=== PATIENT | male | born 1980 | race African-American/Black ===

== ENCOUNTER 2018-08-27 15:20 | Inpatient (IN) | payer SELFPAY ==
[~2018-08-27 15:20] MED LIST: ISOVUE-370 76%-LOCM 1 ML ONE
--- NOTE | 2018-08-27 16:09 | RAD ---
RADIOGRAPH CHEST 1 VIEW: Date: 08/27/2018 Time: 3:47 p.m. HISTORY: A 38-year-old male with dyspnea. COMPARISON: None. FINDINGS: There is a dual-lead left subclavian pacemaker. The cardiomediastinal silhouette is normal. No pneu mothorax or pulmonary edema. The mid and upper lung zones are bilaterally clear. There is blunting of the lateral costophrenic angles bilaterally, left greater than right. Mild, small densities at th e base of the left lung, uncertain whether chronic or acute. IMPRESSION: 1. Small bilateral pleural effusions versus pleural thickening. 2. Mild pulmonary densities at the base of the left lower lobe, of uncertain age. 3. The rest of the lungs are clear. DESTINI [] POS: LEONA
[2018-08-27 16:44] LABS: #Eosinphils 0.1 thou/uL (0.0-0.7); #Monocytes 0.8 thou/uL (0.11-0.59); #Neutrophils 5.6 thou/uL (1.40-6.50); %Basophils 0.6 % (0.0-1.0); %Eosinophils 1.6 % (0.0-10.0); %Lymphocytes 23.6 % (21.0-51.0); %Monocytes 8.9 % (0.0-10.0); %Neutrophils 65.3 % (42.0-75.0); Hemoglobin 16.7 g/dL (14.0-18.0); Mean Corpuscular HGB CONC 33.9 g/dL (32.0-36.0); Mean Corpuscular Hemoglobin 29.9 pg (27.0-31.0); Mean Corpuscular Volume 88.2 fL (78.0-98.0); Mean Platelet Volume 7.8 fL (7.4-10.4); Platelet Count 255 thou/uL (130-400); RBC Distribution Width 12.6 % (11.5-14.5); Red Blood Cell (RBC) Count 5.57 mill/uL (4.70-6.10); White Blood Cell (WBC) Count 8.6 thou/uL (4.8-10.8)
[2018-08-27 17:02] LABS: Magnesium 1.7 mg/dL (1.6-2.6)
[2018-08-27 17:09] LABS: CKMB 3.6 ng/mL (0-6.6); Troponin I 0.049 ng/mL (< 0.028)
--- NOTE | 2018-08-27 17:52 | CT ---
CT PULMONARY ANGIOGRAM WITH 3D RENDERING: HISTORY: A 38-year-old male with a history of congestive heart failure with defibrillator, on Lasix. Worsenin g orthopnea and shortness of breath. FINDINGS: There is moderate focal pleural thickening in the left lung and chest base, with some pleural-based p arenchymal changes as well. There appears to be an absent left lower lobe pulmonary artery, with maria luz e either calcific or postoperative changes in the left lower lobe. No CT evidence for acute pulmonar y embolism. Small hiatal hernia. Very minimal pleural-based parenchymal changes in the right base. No evidence for free layering pleural effusion or pericardial effusion. IMPRESSION: 1. Pleural and parenchymal changes in the left inferior chest, with an absent left lower lobe pulmon alphonso artery. 2. There are some calcific changes, possibly old granulomatous disease. 3. No convincing CT evidence for acute pulmonary embolism. 4. Small hiatal hernia. POS: TENZIN
[2018-08-27 18:56] LABS: ALT (SGPT) 26 U/L (8-55); AST (SGOT) 44 U/L (5-34); Albumin 4.3 g/dL (3.5-5.0); Alkaline Phosphatase 108 U/L (40-150); Anion Gap 20 mmol/L (10-20); BUN (Urea Nitrogen) 33 mg/dL (8.9-20.6); Bilirubin, Total 1.5 mg/dL (0.2-1.2); Calc. Creatinine Clearance 0 mL/min (70-130); Calcium 9.6 mg/dL (7.8-10.44); Carbon Dioxide 31 mmol/L (22-29); Chloride 91 mmol/L (98-107); Estimated GFR-MDRD 36; Globulin 4.1 g/dL (2.4-3.5); Glucose 105 mg/dL (70-105); Protein, Total 8.4 g/dL (6.0-8.3); Sodium 139 mmol/L (136-145)
[2018-08-27 19:01] LABS: Potassium 2.9 mmol/L (3.5-5.1)
[2018-08-27] MEDS ORDERED: Ondansetron PF 4 MG/2 ML Vial IVP PRN (19:31)
[2018-08-27] MEDS ORDERED: Acetaminophen 325 MG TAB PO PRN (19:31)
[2018-08-27] MEDS ORDERED: Nitroglycerin 0.4 MG TAB (25 Tab Bottle) PO PRN (19:31)
[2018-08-27] MEDS ORDERED: Dextrose 5% in Water 1,000 ML IV PRN (19:41)
[2018-08-27] MEDS ORDERED: Dextrose 50% Abboject 50 ML SYRINGE SLOW IVP PRN (19:41)
[2018-08-27] MEDS ORDERED: Potassium Chloride 20 MEQ TAB PO SCH (19:45)
[2018-08-27 19:58] LABS: Cardiac Risk 5.9 (Less than 4.5)
[2018-08-27 21:33] LABS: Troponin I 0.055 ng/mL (< 0.028)
[2018-08-27 22:45] VITALS: BMI 37.0
[2018-08-28 01:09] LABS: Troponin I 0.044 ng/mL (< 0.028)
[2018-08-28] MEDS ORDERED: Potassium Chloride 20 MEQ TAB PO SCH (05:15)
[2018-08-28 05:36] LABS: #Eosinphils 0.2 thou/uL (0.0-0.7); #Lymphocytes 2.6 thou/uL (1.20-3.40); #Neutrophils 4.4 thou/uL (1.40-6.50); %Basophils 0.5 % (0.0-1.0); %Eosinophils 2.4 % (0.0-10.0); %Lymphocytes 31.6 % (21.0-51.0); %Monocytes 12.6 % (0.0-10.0); %Neutrophils 52.9 % (42.0-75.0); Hemoglobin 15.5 g/dL (14.0-18.0); Mean Corpuscular Hemoglobin 29.4 pg (27.0-31.0); Mean Corpuscular Volume 88.9 fL (78.0-98.0); Mean Platelet Volume 7.8 fL (7.4-10.4); Platelet Count 227 thou/uL (130-400); RBC Distribution Width 12.5 % (11.5-14.5); White Blood Cell (WBC) Count 8.2 thou/uL (4.8-10.8)
[2018-08-28 05:58] LABS: Anion Gap 15 mmol/L (10-20); BUN (Urea Nitrogen) 37 mg/dL (8.9-20.6); Calc. Creatinine Clearance 89 mL/min (70-130); Calcium 9.4 mg/dL (7.8-10.44); Carbon Dioxide 35 mmol/L (22-29); Chloride 91 mmol/L (98-107); Estimated GFR-MDRD 47; Glucose 123 mg/dL (70-105); Sodium 138 mmol/L (136-145)
[2018-08-28 06:07] LABS: Potassium 2.6 mmol/L (3.5-5.1)
[2018-08-28] MEDS: Potassium Chloride 20 MEQ TAB PO SCH ×3 (08:30→16:33)
--- NOTE | 2018-08-28 11:44 | HP ---
PRIMARY CARE PHYSICIAN: The patient has no PCP. CODE STATUS: FULL CODE. TIME OF EVALUATION: 7:10 p.m. CHIEF COMPLAINT: Shortness of breath. HISTORY OF PRESENT ILLNESS: This is a 38-year-old male patient with past medical history of arrhythmia, status post AICD placement; also history of asthma; COPD; diabetes; CHF; DVT; came to the hospital after having chest tightness that was reported as retrosternal, radiating to the neck, the symptoms were reported as moderate. No clear triggers, no alleviating factors, has been on and off for past few days, and then worse today. The patient has also reported having family history positive for father with CHF and diabetes and cardiac problems. REVIEW OF SYSTEMS: Constitutional: No fever, chills or generalized weakness. Respiratory: No cough, sputum production or shortness of breath. Cardiovascular: Chest tightness, shortness of breath. Gastrointestinal: No nausea, no vomiting, diarrhea or abdominal pain. HEALTH NAVIGATOR: No dizziness, headache or feeling lightheaded. Genitourinary: No burning on urination. Extremities: No leg swelling. All other systems were reviewed and negative except for the findings mentioned above. PAST MEDICAL HISTORY: Reported in the HPI. FAMILY HISTORY: Father with history of CHF, diabetes, and heart problems. Mother with negative history. PAST SURGICAL HISTORY: Pacemaker in 2017. PSYCHIATRIC HISTORY: No previous psych history. SOCIAL HISTORY: No alcohol, no drugs. No smoking history. KNOWN ALLERGIES: No known drug allergies. REPORTED MEDICATIONS: Metformin, Humulin 70/30, hydrochlorothiazide, gabapentin , and Lasix. PHYSICAL EXAMINATION: VITAL SIGNS: On presentation, blood pressure 107/80, heart rate 103, respiratory rate was 18, temperature 98.7, oxygen saturation 99 on 2 liters. GENERAL APPEARANCE: The patient is obese, alert, oriented, not in any acute distress. HEENT: Eyes, normal conjunctivae. Moist oral mucosa. Anicteric. NECK: No JVD. RESPIRATORY: Bilateral air entry. No rales, no wheezing. Symmetric expansion. CARDIOVASCULAR: Normal rate, regular rhythm. No murmurs, no gallop. No edema. ABDOMEN: Soft, normal bowel sounds. MUSCULOSKELETAL: Baseline range of motion and strength. No tenderness. SKIN: Warm and intact. No pallor, no rash, no redness. Peripheral pulses are present. Capillary refill seems to be intact. NEUROLOGIC: No evidence of any new focal weakness. Baseline speech. Cranial nerves seem to be intact. PSYCHIATRIC: The patient is in good mood. No anxiety, oriented, optimal judgment. IMAGING: EKG was reviewed by myself and also discussed with the performing physician from ER. The patient had normal heart rhythm with a rate of 86 with no evidence of any acute ischemic events. CTA was reviewed. The patient has pleural and parenchymal changes in the left inferior chest with an absent left lower lobe pulmonary artery. There are some calcific changes, possibly old granulomatous disease. No convincing CT evidence for acute pulmonary embolism, small hiatal hernia. Chest x-ray was reviewed. The patient has a small bilateral pleural effusion versus pleural thickening, mild pulmonary densities in the base of the left lower lobe the rest of the lungs are clear. LABORATORY DATA: Labs were reviewed. The patient has white count 9.6, hemoglobin 16.7, MCV 88, platelet count 255. D-dimer 1.28. Chemistry: Sodium 139, potassium 2.9, chloride 91, carbon dioxide 21, anion gap 20, BUN 33, and creatinine 2.05. We do not have previous records to compare. GFR 36, glucose 105, calcium 9.6, magnesium 1.7, total bilirubin 1.5. Troponins were trended, the initial one was 0.049, second one was 0.0325, the third one was 0.044. Beta -natriuretic peptide less than 10. Serum total protein 8.4, albumin 4.3, globulin 4.1. Cholesterol was normal. ASSESSMENT AND PLAN: The patient will be placed in the hospital with following medical problems. 1. Chest pain, rule out acute coronary syndrome. The patient has chest tightness. The patient has significant risk factors, troponins have mildly elevated, we will consult Cardiology for further plan and management. We will do echocardiogram. 2. History of congestive heart failure, we will do echocardiogram in the morning. We will reconcile home medications. 3. Hypokalemia. Potassium 2.9, the potassium being given now after the blood was drawn, ordered morning labs, so after morning lab collection, 40 mEq has been given. Take this into consideration for replacement of potassium. 4. Acute kidney injury versus chronic kidney disease. Creatinine is 2.05. There are no previous records to compare. We will hold diuretics. We will hold MARLON inhibitors. We will monitor kidney function. If not improving, the patient may need Nephrology for assistance with the patient. 5. Mildly elevated bilirubin and LFTs, unclear etiology, we will monitor, we will treat accordingly. 6. History of chronic obstructive pulmonary disease, we will reconcile home medications, adjust treatment as needed. This is chronic, seems to be stable. 7. History of diabetes with long-term use of insulin. We will place the patient on sliding scale. 8. Deep venous thrombosis prophylaxis. MTDD
[2018-08-28 14:21] LABS: Potassium 3.4 mmol/L (3.5-5.1)
--- NOTE | 2018-08-28 18:44 | PDOC.PN ---
- Subjective Encounter Start Date: 08/28/18 Encounter Start Time: 09:30 Patient seen and examined for CP. No new complaints. CP and SOB improving. No overnight events - Objective Resuscitation Status: Resuscitation Status FULL:Full Resuscitation MAR Reviewed: Yes Vital Signs & Weight: Vital Signs (12 hours) Temp Pulse Resp BP Pulse Ox 08/28/18 16:27 98 F 93 18 105/57 L 96 08/28/18 11:59 98.6 F 91 18 141/63 H 96 08/28/18 08:27 98.2 F 83 16 109/70 94 L Weight Weight 273 lb I&O: 08/27/18 08/28/18 08/29/18 06:59 06:59 06:59 Intake Total 600 1000 Output Total 750 975 Balance -150 25 Result Diagrams: 08/28/18 05:08 08/28/18 13:55 Additional Labs: Accuchecks 08/28/18 08/28/18 08/28/18 17:20 10:34 05:29 POC Glucose 166 H 123 H 134 H EKG Reviewed by me: Yes (Tele SR) Phys Exam - Physical Examination Constitutional: NAD Respiratory: no wheezing, no rhonchi Few bibasilar rales Cardiovascular: RRR, no rub Gastrointestinal: soft, non-tender, positive bowel sounds Neurological: moves all 4 limbs Dx/Plan - Plan DVT proph w/SCDs 1. Chest pain 2. SULAIMAN on CKD 2/Hypokalemia 3. DM2 4. Chronic pain syndrome 5. Obesity BMI 37 6. HTN / Elevated troponin due to demand ischemia / h/o DVT PLAN: Replace Potassium Hold diuretics Await Echo AM labs Resume Gabapentin Fluid restriction Avoid Nephrotoxic agents Review of Systems - Review of Systems Constitutional: negative: fever, chills, sweats, weakness, malaise, other Gastrointestinal: negative: Nausea, Vomiting, Abdominal Pain, Diarrhea, Constipation, Melena, Hematochezia, Other - Medications/Allergies Allergies/Adverse Reactions: Allergies Allergy/AdvReac Type Severity Reaction Status Date / Time No Known Drug Allergies Allergy Verified 08/27/18 22:02 Medications: Current Medications Acetaminophen (Tylenol) 650 mg PO Q4H PRN PRN Reason: Headache/Fever/Mild Pain (1-3) Dextrose/Water (Dextrose 50%) 25 gm SLOW IVP PRN PRN PRN Reason: Hypoglycemia Gabapentin (Neurontin) 300 mg PO TID SUSAN Glucagon (Glucagon) 1 mg IM PRN PRN PRN Reason: Hypoglycemia Dextrose/Water (D5w) 1,000 mls @ 0 mls/hr IV .Q0M PRN PRN Reason: Hypoglycemia Insulin Human Lispro (Humalog) 0 units SC .MILD SLIDING SCALE PRN PRN Reason: Mild Correctional Scale Nitroglycerin (Nitrostat) 0.4 mg PO Q5MIN PRN PRN Reason: Chest Pain Ondansetron HCl (Zofran) 4 mg IVP Q6H PRN PRN Reason: Nausea/Vomiting
[2018-08-28] MEDS: Gabapentin 300 MG CAP PO SCH (20:06)
--- NOTE | 2018-08-28 22:10 | CON ---
DATE OF CONSULTATION: 08/28/2018 INDICATION FOR CONSULTATION: A 38-year-old patient with chest pain. HISTORY OF PRESENT ILLNESS: The patient has a very confusing history, unclear as to exactly what the date of is, but he does have a pacemaker insertion. 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 At this time, he presented to the emergency room complaining of chest discomfort to me. He says he has left shoulder pain. The pain does not radiate. He described it as being a throbbin g pain that started when he was lifting parts where he works. He says he works in [employer] at a [employer] and says once he had his pacemaker inserted, then he went back to work at the same facility. I am uncertain whether or not the patient even works at all on his last notes. According to the staf f here when he was here back in June, he [facility] and uncertain as to where the patient even lives now. He has had no further chest pain since being admitted, he di d complain of some blurred vision while he had the chest discomfort and sometimes he described as oma ng throbbing and the other time he described it being vice-like pain which came and went. His cardia c enzymes are slightly abnormal, but are not significant for myocardial infarction. His troponin I i s 0.044 and we will continue to follow these. On admission, they were 0.049 increased up to 0.055 an d now back down to 0.44. His MB was negative at 3.6. His BNP was 10.0 and potassium was 2.9. He do es have a card which shows he did have a pacemaker implanted and he said this was due to some type of irregular rhythm or possibly bradycardia. He is definitely unclear about the etiology of the pacema ker insertion. We will try to obtain records from [place] to determine when or what the reason ind ication for the pacemaker insertion was, but this was implanted in 11/2017. His EKG does not show an y indication that the patient has any ischemia. He does have a sinus rhythm with a right bundle bran ch block. He says he has not had a stress test in the past. We will try to obtain some type of stre ss test on this gentleman to see whether or not there is any evidence of underlying ischemia. As far as his past medical history, social history, family history, review of systems, medications, allergi es, please refer to the notes already dictated by nurse practitioner, Aditi Wilburn. PHYSICAL EXAMINATION: GENERAL: Reveals a middle-aged gentleman who is in no acute distress. VITAL SIGNS: Blood pressure is 105/57. He is afebrile, respiratory rate is 18, heart rates in the 9 0s and shows a sinus rhythm. HEENT: Showed head to be normocephalic and atraumatic. Carotid pulses are present without any bruit s. CHEST: Clear to auscultation. There were no rales, rhonchi or wheezing noted. CARDIOVASCULAR: Exam reveals a regular rate and rhythm. He has a well healed surgical incision afte r pacemaker insertion underneath the left infraclavicular area. ABDOMEN: Shows obesity with positive bowel sounds. EXTREMITIES: Showed no clubbing, cyanosis or edema. Pedal pulses are present. NEUROLOGIC: There were no gross focal motor deficits, but in my opinion, the patient does appear to be somewhat confused and stories do not correlate with what we are finding from the records. We will try to obtain medical records to verify some of his stories. At this time, we will also ask for the pacemaker be evaluated and make sure there are no abnormalities with the pacemaker, but does appear that was implanted in November. I do not know whether this has been interrogated since it was implanted. He says it is not and he has not seen a undercutter operator since the implantation of the pacem emily. This is a [employer] device and we will ask for the [employer] unit support representative to evaluate the pace maker. Otherwise, the patient appears to be stable from my perspective at this time, there is no ind ication we need to do any further workup, but we will schedule him for some type of stress test to de termine whether or not he may have underlying coronary artery disease. He does have other problems a pparently with COPD, but he denies any tobacco abuse in the past, but uncertain as to why he would guerrier ve COPD and chest x-ray does not indicate COPD in my opinion Diabetes. His blood sugar was 105, the highest was 123. He is taking medications apparently for the diabetes. We will continue to follow the patient with you, but we will try to obtain further record s on this gentleman with his very confusing medical history.
[2018-08-29 07:10] LABS: Anion Gap 13 mmol/L (10-20); BUN (Urea Nitrogen) 28 mg/dL (8.9-20.6); Calc. Creatinine Clearance 120 mL/min (70-130); Calcium 9.4 mg/dL (7.8-10.44); Carbon Dioxide 33 mmol/L (22-29); Chloride 93 mmol/L (98-107); Estimated GFR-MDRD 64; Glucose 110 mg/dL (70-105); Sodium 136 mmol/L (136-145)
[2018-08-29 07:14] LABS: Potassium 2.9 mmol/L (3.5-5.1)
[2018-08-29] MEDS: Gabapentin 300 MG CAP PO SCH ×3 (08:10→21:03)
[2018-08-29] MEDS: Potassium Chloride 20 MEQ TAB PO SCH ×3 (08:10→16:53)
[2018-08-29] MEDS ORDERED: Regadenoson 0.4 MG/5 ML SYRINGE ONE (08:38)
--- NOTE | 2018-08-29 10:08 | CON ---
DATE OF CONSULTATION: 08/28/2018 ROOM NUMBER: [id number] PRIMARY CARE PHYSICIAN: Jack. PRIMARY VARNISH INSPECTOR: Dr. Mercedes David. REFERRING PHYSICIAN: Dr. Chao Gates. REASON FOR CARDIOLOGY CONSULTATION: Chest tightness and elevated troponin. HISTORY OF PRESENT ILLNESS: Mr. King is a 38-year-old -[place] male with a significant hist ory of pacemaker placement for unknown reason, COPD, insulin-dependent diabetes, congestive heart garo lure, and history of DVT 2 years ago. The patient started having squeeze like and a pressure-like ch est pain to his chest with worsening shortness of breath for a few days. He went to work yesterday, but he was transferred to [facility] by EMS for worsening of the symptoms. He d enied any other cardiac complaints during the episode. Slightly he has similar symptoms yesterday, b ut he does not have any chest pain or shortness of breath this afternoon. The patient has a history of [employer] pacemaker placement in 11/2017 due to syncopal episode and congestive heart failure per p atient report. The patient reported that the patient had congestive heart failure, but there are no echocardiograms to indicate the patient had a congestive heart failure. The patient has a history of DVT on the right lower extremity and patient was on the Coumadin before, but he was discharged in with Xarelto since the patient was on the Coumadin with a dosage of 17.5 mg. He says he is rikki ing the medicine, however, he is no longer taking the medication. He has a history of hypertension u rgency in 06/2018. The patient had a history of a CVA in 2016 and the patient had insulin-dependent diabetes. He states that his blood glucose has been stable at home. The patient has echocardiogram done in 06/2018 which showing a technically difficult examination due to the patient's body mass. According to our record, the patient does not have any cardiac workup ex cept echo. PAST MEDICAL HISTORY: 1. Hypertension. 2. 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 3. COPD. 4. Insulin-dependent diabetes. 5. Congestive heart failure. 6. History of DVT in 2015. 7. Status post syncope with a pacemaker placement in 11/2017. PAST SURGICAL HISTORY: Pacemaker placement in 2018. FAMILY HISTORY: There have a significant congestive heart failure, diabetes and heart problem in the paternal side. There is no significant cardiac related medical history in the maternal side. SOCIAL HISTORY: The patient worked at [employer]. 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 However, the patient last medical record showing the patient ____ . The patient denies ETOH, tobacco, or illicit drug abuse. ALLERGIES: No known drug allergies. However, the patient's previous note saying that the patient is allergic to LISINOPRIL, METFORMIN, TRIAMCINOLONE. HOME MEDICATIONS: Hydrochlorothiazide 12.5 mg once a day; Lasix 80 mg twice a day; metformin 100 mg twice a day; gabapentin 300 mg twice a day; Insulin Humulin 70/30, 30 units twice a day. REVIEW OF SYSTEMS: Review of systems was negative unless otherwise mentioned in the HPI or below. T he patient complained of blurry vision secondary to the history of CVA and also edema in the right lo wer extremity secondary to CVA. PHYSICAL EXAMINATION: VITAL SIGNS: Blood pressure 105/57, temperature 98.0, pulse 93, respiratory rate 18, O2 sat 96% with room air. GENERAL: The patient is alert, oriented x4, not in acute distress. HEAD: Normocephalic, atraumatic. EYES: Extraocular muscle movement intact. ENT AND MOUTH: Nasal and oral mucosa moist without lesions. NECK: No JVD. Neck is supple. Normal range of motion. RESPIRATORY: Clear to auscultate bilaterally. No wheezing, rales, or rhonchi noted. CARDIOVASCULAR: Regular rate and rhythm, normal S1, S2 and no S3 or S4. No murmur, hives, or thrill noted. Carotid pulses are present without bruit or thrill. 2+ pulses in the bilateral upper and lo wer extremities. No edema in the lower extremity or right upper extremity. ABDOMEN: Nontender or mass to palpate. Bowel sounds are present. MUSCULOSKELETAL: The patient able to move all extremities. The patient denies any claudication. SKIN: Warm and dry. No rash, bruise, or lesion noted. NEUROLOGIC: The patient alert and oriented x4, nonfocal. PSYCHIATRIC: The patient is in a good mood, mood is appropriate. DIAGNOSTIC DATA: The patient's 12-lead EKG in the ER shows sinus rhythm with right bundle jay blo ck with heart rate [address]-segment change or T-wave inversion. CT scan of the chest showed ple ural and parenchymal change in the left inferior chest ____ pulmonary arteries. Known convincing CT evidence for acute pulmonary embolism ____. LABORATORY DATA: WBC 8.2, hemoglobin 15.5, hematocrit 47.1, platelet 227 and D-dimer 1.28. Sodium 1 38, potassium 3.4 after potassium replacement. BUN 37, creatinine 1.95, glucose 123. Troponin 0.049 , 0.055, 0.044. AST 44, ALT 26. On 06/28/2018, the patient has a right upper quadrant ultrasound fo r elevated LFT and tenderness, the test showing a fatty liver to the left hepatic lobe and no additio nal abnormality. The patient was recommended to follow up right upper quadrant ultrasound within 6-8 weeks. ASSESSMENT AND PLAN: 1. Chest pain with indeterminate troponin level. The patient's last troponin is highest 0.055. Acc ording to the patient, the patient never had a stress test or any cardiac workup except the echocardi ogram in June and today, result is pending at this moment. We like to go ahead to order a stres s test tomorrow for further cardiac evaluation. 2. History of congestive heart failure. The patient had an echocardiogram done today and the result is pending at this moment. The patient is not on beta divya due to hypotensive and the patient is not on MARLON inhibitor or ARB secondary to history of chronic kidney disease. At this moment, the pat ient is not on a diuretic because the patient is doing well. 3. Chronic kidney disease, creatinine level is slightly improving today. We would like to continue to monitor. 4. Mildly elevated LFT, possible secondary to history of a fatty liver. According to the patient, t he patient have not had any additional ultrasound since the patient had here in June. 5. History of chronic obstructive pulmonary disease. According to the patient's chest x-ray, there is no evidence of COPD. The patient is doing well with room air. 6. Insulin-dependent diabetes. The patient is on before meals and at bedtime blood glucose check wi th sliding scale insulin, which is managed by primary care doctor. Thank you for allowing to participate in the care of this patient. We will follow along with the [facility] ient care team and make further recommendations as appropriate.
--- NOTE | 2018-08-29 11:54 | PDOC.CTH ---
Cardiology Progress Note - ROS shortness of breath - Objective Vital Signs Temp Pulse Resp BP Pulse Ox 08/29/18 11:20 98.6 F 65 14 142/71 H 94 L 08/29/18 08:00 97 08/29/18 07:52 97.8 F 65 16 126/63 97 08/29/18 05:02 95 08/29/18 03:41 99.1 F 63 12 109/53 L 95 Weight 280 lb 14.4 oz 08/28/18 08/29/18 08/30/18 06:59 06:59 06:59 Intake Total 600 1400 Output Total 750 975 Balance -150 425 - Physical Examination General/Neuro: alert & oriented x3 Neck: no JVD present Lungs: CTA Heart: RRR Abdomen: soft Extremities: + edema B - Telemetry Telemetry Rhythm: NSR - Labs Result Diagrams: 08/28/18 05:08 08/29/18 05:44 Troponin/CKMB CK-MB (CK-2) 3.6 ng/mL (0-6.6) 08/27/18 16:36 Troponin I 0.044 ng/mL (< 0.028) H 08/28/18 00:24 - Assessment/Plan 1. Chest pain 2. SULAIMAN on CKD 2/Hypokalemia 3. DM2 4. Chronic pain syndrome 5. Obesity BMI 37 6. HTN / Elevated troponin due to demand ischemia / h/o DVT 7. s/p pacemaker insertion. Interrogation: A lead is turned off. Likely just below the TV into the RV. occ. episodes of rapid ventricular rates, may be due to intermitent Afib. but can not be certain since the A-lead is not in the RA. Consider revision. add Coreg bid. 8. RAMIREZ- this may be related to his obesity. Waiting for records from [place]. Echo: EF is WNL.
--- NOTE | 2018-08-29 16:00 | NM ---
CARDIAC SPECT STRESS ONLY WITH EF AND WALL MOTION: HISTORY: A 38-year-old male with a history of chest pain and shortness of breath, history of congestive heart failure. Prior stroke. Prior cardiac arrest. COPD and asthma. FINDINGS: LexiScan sestamibi study is performed. The patient was injected with 33.0 mCi Technetium 99m sestamibi intravenously for stress images. No scan evidence for infarct or ischemia involving the short axis, vertical long axis, horizontal long a xis. LHR 0.3. EDV 115 mL. EF 52%. MYOCARDIAL PERFUSION WALL MOTION: No significant wall motion abnormality. IMPRESSION: Unremarkable stress-only cardiac SPECT with ejection fraction and wall motion. POS: TENZIN
--- NOTE | 2018-08-29 16:46 | PDOC.PN ---
- Subjective Encounter Start Date: 08/29/18 Encounter Start Time: 07:30 Patient seen and examined for CP/SOB. No new complaints. No overnight events - Objective Resuscitation Status: Resuscitation Status FULL:Full Resuscitation MAR Reviewed: Yes Vital Signs & Weight: Vital Signs (12 hours) Temp Pulse Resp BP Pulse Ox 08/29/18 15:28 98 F 91 14 132/88 97 08/29/18 11:20 98.6 F 65 14 142/71 H 94 L 08/29/18 08:00 97 08/29/18 07:52 97.8 F 65 16 126/63 97 08/29/18 05:02 95 Weight Weight 280 lb 14.4 oz I&O: 08/28/18 08/29/18 08/30/18 06:59 06:59 06:59 Intake Total 600 1400 Output Total 750 975 Balance -150 425 Result Diagrams: 08/28/18 05:08 08/29/18 05:44 Additional Labs: Accuchecks 08/29/18 08/29/18 08/28/18 10:54 06:20 20:37 POC Glucose 123 H 124 H 134 H 08/28/18 17:20 POC Glucose 166 H EKG Reviewed by me: Yes (Tele SR) Phys Exam - Physical Examination Constitutional: NAD Respiratory: no wheezing, no rhonchi Cardiovascular: RRR, no rub Gastrointestinal: soft, non-tender, positive bowel sounds Neurological: moves all 4 limbs Dx/Plan - Plan DVT proph w/SCDs 1. Chest pain 2. SULAIMAN on CKD 2/Hypokalemia 3. DM2 4. Chronic pain syndrome 5. Obesity BMI 37 6. HTN / Elevated troponin due to demand ischemia / h/o DVT PLAN: Replace Potassium Echo reviewed Stress test AM labs Fluid restriction Avoid Nephrotoxic agents Review of Systems - Review of Systems Respiratory: SOB with Excertion. negative: Cough, Dry, Shortness of Breath, Hemoptysis, Pleuritic Pain, Sputum, Wheezing Cardiovascular: negative: chest pain, palpitations, orthopnea, paroxysmal nocturnal dyspnea, edema, light headedness, other - Medications/Allergies Allergies/Adverse Reactions: Allergies Allergy/AdvReac Type Severity Reaction Status Date / Time No Known Drug Allergies Allergy Verified 08/27/18 22:02 Medications: Current Medications Acetaminophen (Tylenol) 650 mg PO Q4H PRN PRN Reason: Headache/Fever/Mild Pain (1-3) Carvedilol (Coreg) 3.125 mg PO BID-[facility] Dextrose/Water (Dextrose 50%) 25 gm SLOW IVP PRN PRN PRN Reason: Hypoglycemia Gabapentin (Neurontin) 300 mg PO TID [facility] Last Admin: 08/29/18 15:18 Dose: 300 mg Glucagon (Glucagon) 1 mg IM PRN PRN PRN Reason: Hypoglycemia Dextrose/Water (D5w) 1,000 mls @ 0 mls/hr IV .Q0M PRN PRN Reason: Hypoglycemia Insulin Human Lispro (Humalog) 0 units SC .MILD SLIDING SCALE PRN PRN Reason: Mild Correctional Scale Nitroglycerin (Nitrostat) 0.4 mg PO Q5MIN PRN PRN Reason: Chest Pain Ondansetron HCl (Zofran) 4 mg IVP Q6H PRN PRN Reason: Nausea/Vomiting Potassium Chloride (K-Dur) 40 meq PO TID-[facility] Stop: 08/29/18 17:01 Last Admin: 08/29/18 11:03 Dose: 40 meq
[2018-08-29] MEDS: Carvedilol 3.125 MG TAB PO SCH (16:53)
[2018-08-30 05:51] LABS: Anion Gap 15 mmol/L (10-20); Calcium 9.5 mg/dL (7.8-10.44); Carbon Dioxide 27 mmol/L (22-29); Chloride 99 mmol/L (98-107); Potassium 3.5 mmol/L (3.5-5.1); Sodium 137 mmol/L (136-145)
[2018-08-30 06:00] LABS: BUN (Urea Nitrogen) 20 mg/dL (8.9-20.6); Calc. Creatinine Clearance 134 mL/min (70-130); Estimated GFR-MDRD 72; Glucose 107 mg/dL (70-105)
[2018-08-30] MEDS ORDERED: Sodium Chloride 0.9% 10 ML ONE (07:41)
[2018-08-30] MEDS: Carvedilol 3.125 MG TAB PO SCH ×2 (08:17→17:25)
[2018-08-30] MEDS: Gabapentin 300 MG CAP PO SCH ×3 (08:17→21:09)
[2018-08-30] MEDS: HumaLOG 300 UNITS/3 ML VIAL SC PRN (11:02)
--- NOTE | 2018-08-30 13:26 | PDOC.CTH ---
<Aditi Wilburn - Last Filed: 08/30/18 13:25> Cardiology Progress Note - Subjective the pt seen and examined. No overnight events. No cardiac complaints. - Objective Vital Signs Temp Pulse Resp BP BP Pulse Ox 08/30/18 12:28 97.9 F 82 17 140/89 99 08/30/18 08:12 98.1 F 84 16 115/69 98 08/30/18 07:49 96 08/30/18 04:40 98 08/30/18 03:52 97.6 F 62 20 128/63 99 Weight 282 lb 11.2 oz 08/29/18 08/30/18 08/31/18 06:59 06:59 06:59 Intake Total 1400 1170 Output Total 975 1740 Balance 425 -570 - Physical Examination General/Neuro: alert & oriented x3 Neck: no JVD present Lungs: CTA Heart: RRR Abdomen: soft Extremities: other: (No edema) - Telemetry Telemetry Rhythm: SR - Labs Result Diagrams: 08/28/18 05:08 08/30/18 05:00 Troponin/CKMB CK-MB (CK-2) 3.6 ng/mL (0-6.6) 08/27/18 16:36 Troponin I 0.044 ng/mL (< 0.028) H 08/28/18 00:24 - Assessment/Plan 1. Chest pain - resolved; 2. SULAIMAN on CKD 2/Hypokalemia - improving 3. DM2 - managed by pcp 4. Chronic pain syndrome - 5. Obesity BMI 37 6. HTN - stable 7. S/p pacemaker insertion. Interrogation: A lead is turned off. Likely just below the TV into the RV. occ. episodes of rapid ventricular rates, may be due to intermittent Afib. but can not be certain since the A-lead is not in the RA. Consider revision. On Coreg bid. 8. RAMIREZ - stable today. Waiting for records from [place]. Echo: EF is WNL. Review of Systems - Review of Systems Constitutional: reports: no symptoms reported EENTM: reports: no symptoms reported Respiratory: reports: no symptoms reported Cardiac (ROS): reports: no symptoms reported ABD/GI: reports: no symptoms reported Musculoskeletal: reports: joint pain <Benson David - Last Filed: 08/30/18 17:38> Cardiology Progress Note - Objective Vital Signs Temp Pulse Resp BP BP Pulse Ox 08/30/18 15:51 98.6 F 77 17 135/84 98 08/30/18 12:28 97.9 F 82 17 140/89 99 08/30/18 08:12 98.1 F 84 16 115/69 98 08/30/18 07:49 96 Weight 282 lb 11.2 oz 08/29/18 08/30/18 08/31/18 06:59 06:59 06:59 Intake Total 1400 1170 720 Output Total 975 1740 1020 Balance 425 -570 -300 - Labs Result Diagrams: 08/28/18 05:08 08/30/18 05:00 Troponin/CKMB CK-MB (CK-2) 3.6 ng/mL (0-6.6) 08/27/18 16:36 Troponin I 0.044 ng/mL (< 0.028) H 08/28/18 00:24 - Assessment/Plan pt. seen and eval. by me. I agree with the A/P by the HYDROGRAPHER. The A-lead does not have to be revised at this time. he rarely paces. The stress test was negative. From a cardiac stanpoint he is stable. No further workup indicated.
[2018-08-30] MEDS ORDERED: Polyethylene Glycol 3350 17 GM Packet PO PRN (15:09)
--- NOTE | 2018-08-30 16:57 | RAD ---
RIGHT SHULDER 3 VIEWS: HISTORY: Shoulder pain x 1 day. FINDINGS: Some minimal arthritic change of the AC joint. There are no signs of fracture or dislocation. IMPRESSION: No acute injury. POS: [facility]
--- NOTE | 2018-08-30 18:37 | PDOC.PN ---
- Subjective Encounter Start Date: 08/30/18 Encounter Start Time: 12:30 Patient seen and examined for CP. Rt shoulder pain - worsening. No other complaints. No overnight events - Objective Resuscitation Status: Resuscitation Status FULL:Full Resuscitation MAR Reviewed: Yes Vital Signs & Weight: Vital Signs (12 hours) Temp Pulse Resp BP BP Pulse Ox 08/30/18 15:51 98.6 F 77 17 135/84 98 08/30/18 12:28 97.9 F 82 17 140/89 99 08/30/18 08:12 98.1 F 84 16 115/69 98 08/30/18 07:49 96 Weight Weight 282 lb 11.2 oz I&O: 08/29/18 08/30/18 08/31/18 06:59 06:59 06:59 Intake Total 1400 1170 720 Output Total 975 1740 1020 Balance 425 -570 -300 Result Diagrams: 08/28/18 05:08 08/30/18 05:00 Additional Labs: Accuchecks 08/30/18 08/30/18 08/30/18 17:04 10:41 05:45 POC Glucose 158 H 212 H 111 H 08/29/18 20:17 POC Glucose 141 H EKG Reviewed by me: Yes (Tele SR) Phys Exam - Physical Examination Constitutional: NAD Respiratory: no wheezing, no rhonchi Cardiovascular: RRR, no rub Gastrointestinal: soft, non-tender, positive bowel sounds Neurological: moves all 4 limbs Dx/Plan - Plan DVT proph w/SCDs 1. Chest pain 2. SULAIMAN on CKD 2/Hypokalemia 3. DM2 4. Rt shoulder pain 5. Obesity BMI 37 6. HTN /Chronic pain syndrome/ Elevated troponin due to demand ischemia / h/o DVT PLAN: Rt shoulder XR Await records from [place] Cont current meds as below Cardiology following Review of Systems - Review of Systems Cardiovascular: negative: chest pain, palpitations, orthopnea, paroxysmal nocturnal dyspnea, edema, light headedness, other Gastrointestinal: negative: Nausea, Vomiting, Abdominal Pain, Diarrhea, Constipation, Melena, Hematochezia, Other - Medications/Allergies Allergies/Adverse Reactions: Allergies Allergy/AdvReac Type Severity Reaction Status Date / Time No Known Drug Allergies Allergy Verified 08/27/18 22:02 Medications: Current Medications Acetaminophen (Tylenol) 650 mg PO Q4H PRN PRN Reason: Headache/Fever/Mild Pain (1-3) Carvedilol (Coreg) 3.125 mg PO BID-[facility] Last Admin: 08/30/18 17:25 Dose: 3.125 mg Dextrose/Water (Dextrose 50%) 25 gm SLOW IVP PRN PRN PRN Reason: Hypoglycemia Gabapentin (Neurontin) 300 mg PO TID [facility] Last Admin: 08/30/18 15:55 Dose: 300 mg Glucagon (Glucagon) 1 mg IM PRN PRN PRN Reason: Hypoglycemia Dextrose/Water (D5w) 1,000 mls @ 0 mls/hr IV .Q0M PRN PRN Reason: Hypoglycemia Insulin Human Lispro (Humalog) 0 units SC .MILD SLIDING SCALE PRN PRN Reason: Mild Correctional Scale Last Admin: 08/30/18 11:02 Dose: 3 unit Nitroglycerin (Nitrostat) 0.4 mg PO Q5MIN PRN PRN Reason: Chest Pain Ondansetron HCl (Zofran) 4 mg IVP Q6H PRN PRN Reason: Nausea/Vomiting Polyethylene Glycol (Miralax) 17 gm PO DAILY PRN PRN Reason: Constipation Senna/Docusate Sodium (Senokot S) 2 tab PO BID [facility]
[2018-08-30] MEDS: Senokot S 8.6-50 MG TAB PO SCH (21:09)
[2018-08-31] MEDS ORDERED: Potassium Chloride 20 MEQ TAB PO SCH (08:00)
--- NOTE | 2018-08-31 09:22 | PDOC.CTH ---
<Aditi Wilburn - Last Filed: 08/31/18 09:18> Cardiology Progress Note - Subjective The pt seen and examined. No overnight events. No cardiac complaints. - Objective Vital Signs Temp Pulse Resp BP Pulse Ox 08/31/18 08:00 98 08/31/18 07:15 98.1 F 58 L 16 106/55 L 98 08/31/18 03:40 98.2 F 65 18 141/67 H 96 Weight 286 lb 1.6 oz 08/30/18 08/31/18 09/01/18 06:59 06:59 06:59 Intake Total 1170 1425 Output Total 1740 1670 Balance -570 -245 - Physical Examination General/Neuro: alert & oriented x3 Neck: no JVD present Lungs: CTA Heart: RRR Abdomen: soft Extremities: other: (No edema) - Telemetry Telemetry Rhythm: SR - Labs Result Diagrams: 08/28/18 05:08 08/30/18 05:00 Troponin/CKMB CK-MB (CK-2) 3.6 ng/mL (0-6.6) 08/27/18 16:36 Troponin I 0.044 ng/mL (< 0.028) H 08/28/18 00:24 - Assessment/Plan 1. Chest pain - resolved; Stress test showed normal; 2. SULAIMAN on CKD 2/Hypokalemia - improving; 3. DM2 - managed by pcp 4. Chronic pain syndrome - 5. Obesity BMI 37 6. HTN - stable 7. S/p pacemaker insertion. Interrogation: A lead is turned off. Likely just below the TV into the RV. occ. episodes of rapid ventricular rates, may be due to intermittent Afib. but can not be certain since the A-lead is not in the RA. Consider revision as outpt. On Coreg bid. 8. RAMIREZ - stable today. Waiting for records from [place]. Echo: EF is WNL. MAR reviewed * The A-lead does not have to be revised at this time. he rarely paces. Possible revision as outpt. * No further workup indicated. From a cardiac stanpoint he is stable. Ok to d/ c. The pt will f/u with Dr David' office within 10 days. Review of Systems - Review of Systems Constitutional: reports: no symptoms reported EENTM: reports: no symptoms reported Respiratory: reports: no symptoms reported Cardiac (ROS): reports: no symptoms reported ABD/GI: reports: no symptoms reported : reports: no symptoms reported <Benson David - Last Filed: 08/31/18 16:27> Cardiology Progress Note - Objective Vital Signs Temp Pulse Resp BP Pulse Ox 08/31/18 12:00 98.2 F 91 16 135/70 96 08/31/18 09:26 89 180/93 H 08/31/18 08:00 98 08/31/18 07:15 98.1 F 58 L 16 106/55 L 98 Weight 286 lb 1.6 oz 08/30/18 08/31/18 09/01/18 06:59 06:59 06:59 Intake Total 1170 1425 Output Total 1740 1670 Balance -570 -245 - Labs Result Diagrams: 08/28/18 05:08 08/30/18 05:00 Troponin/CKMB CK-MB (CK-2) 3.6 ng/mL (0-6.6) 08/27/18 16:36 Troponin I 0.044 ng/mL (< 0.028) H 08/28/18 00:24 - Assessment/Plan Pt.seen and eval.by me.I agree with the A/P by the PIECE MAKER.Cardiac status is stable.ok to d/c to[place]ye.F/U in the office in 1-2 months.
[2018-08-31] MEDS: Carvedilol 3.125 MG TAB PO SCH ×2 (09:24→16:53)
[2018-08-31] MEDS: Gabapentin 300 MG CAP PO SCH ×2 (09:24→16:53)
[2018-08-31] MEDS: Senokot S 8.6-50 MG TAB PO SCH (09:24)
[2018-08-31] MEDS: HumaLOG 300 UNITS/3 ML VIAL SC PRN (11:00)
[2018-08-31 16:56] VITALS: BP 163/92; TEMP 98.5
--- NOTE | 2018-09-01 09:50 | DIS ---
DATE OF ADMISSION: 08/27/2018 DATE OF DISCHARGE: 08/31/2018 DISCHARGE DISPOSITION: Home. FOLLOWUP: 1. Follow up with primary care physician at [facility] in 1 week. 2. Follow up with Dr. David after 1 week. 3. [facility] followup as an outpatient is recommended. 4. BMP after 1 and 3 weeks is recommended. Primary care physician advised to follow. ALLERGIES: NO KNOWN DRUG ALLERGIES. BRIEF HISTORY: The patient was seen and examined on the day of discharge. Denies any new complaints. No chest pain, shortness of breath, or palpitations. DISCHARGE MEDICATIONS: 1. Carvedilol 3.125 mg b.i.d. 2. Lasix 40 mg daily. 3. Potassium chloride 10 mEq daily. 4. Humulin 70/30 of 30 units b.i.d. 5. Gabapentin 300 mg 3 times a day. INPATIENT [employer]: Cardiology, Dr. Abrahan David. BRIEF HOSPITAL COURSE: The patient is a 38-year-old male with congestive heart failure, diabetes, hypertension, and pacemaker in the past, presented to the hospital with chest discomfort. Please refer to the history and physical dated 08/27/[address] Gates for further details. The patient was admitted to the hospital with a diagnosis of chest discomfort. The patient was seen by Dr. Abrahan David. Echocardiogram was obtained that showed ejection fraction of 50% to 55%. His pacemaker was interrogated. The A-lead was turned off. He will probably need revision as an outpatient. He will follow up with Dr. David next week. He also had acute kidney injury along with hypokalemia. For this reason, Lasix dose has been reduced. I also discontinued hydrochlorothiazide. His potassium on admission was 2.9, at discharge is 3.5. Lowest potassium was 2.6. His creatinine on the day of discharge is 1.33, on admission was 2.05. His troponins were in the indeterminate range at 0.049. He has been cleared by Cardiology for discharge. FINAL DIAGNOSES: 1. Chest discomfort. 2. Elevated troponins, probably secondary to demand ischemia. 3. Acute kidney injury on chronic kidney disease, stage 2. 4. Hypokalemia, replaced. 5. Diabetes mellitus, type 2. 6. Right shoulder pain with negative shoulder x-ray. 7. Obesity with BMI of 37. 8. Chronic pain syndrome. 9. Hypertension. 10. History of deep venous thrombosis in the past. Plan of care was discussed with the patient in detail. Please note that the patient has 2 different medical record numbers with a different date of . Job ID: [id number]
--- NOTE | 2018-09-04 16:08 | EKG ---
Test Reason : Blood Pressure : / mmHG Vent. Rate : 086 BPM Atrial Rate : 086 BPM P-R Int : 146 ms QRS Dur : 144 ms QT Int : 450 ms P-R-T Axes : 067 024 033 degrees QTc Int : 538 ms Normal sinus rhythm Right bundle branch block S1 Q3 T3 Right bundle branch block Abnormal ECG Confirmed by JOSE MANUEL LEBLANC ([id number]), scientific publications editor VONDA HURD ([id number]) on 09/04/2018 4:08:32 PM Referred By: Confirmed By:JOSE MANUEL LEBLANC
== END 2018-08-31 16:58 | disposition home or self-care (01) | DRG 313 ==
LOC: ERS 15:20 → 2NO 18:45
PROVIDERS: ADMIT Internal Medicine; ATTEND Internal Medicine
DX: R07.89 Other chest pain (principal); I24.8 Other forms of acute ischemic heart disease; I69.351 Hemiplegia and hemiparesis following cerebral infarction affecting right dominant side; I13.0 Hypertensive heart and chronic kidney disease with heart failure and stage 1 through stage 4 chronic kidney disease, or unspecified chronic kidney disease; N17.9 Acute kidney failure, unspecified; J44.9 Chronic obstructive pulmonary disease, unspecified; Z79.4 Long term (current) use of insulin; E11.22 Type 2 diabetes mellitus with diabetic chronic kidney disease; I50.9 Heart failure, unspecified; Z95.0 Presence of cardiac pacemaker; G89.4 Chronic pain syndrome; E87.6 Hypokalemia; Z86.718 Personal history of other venous thrombosis and embolism; E66.9 Obesity, unspecified; Z68.37 Body mass index [BMI] 37.0-37.9, adult; N18.2 Chronic kidney disease, stage 2 (mild)
CPT/HCPCS: 36415; 36416; 71045; 71275; 78452; 80048; 80053; 80061; 82553; 83690; 83735; 83880; 84484; 85025; 85379; 90471; 90686; 93005; 93017; 93306; 94760; A9500; G0008; J2785; J3475; J7050

== ENCOUNTER 2018-10-01 18:00 | Observation (INO) | payer SELFPAY ==
[2018-10-01 18:40] LABS: #Eosinphils 0.3 thou/uL (0.0-0.7); #Monocytes 0.9 thou/uL (0.11-0.59); #Neutrophils 4.7 thou/uL (1.40-6.50); %Basophils 0.6 % (0.0-1.0); %Eosinophils 3.5 % (0.0-10.0); %Lymphocytes 25.4 % (21.0-51.0); %Monocytes 10.9 % (0.0-10.0); %Neutrophils 59.6 % (42.0-75.0); Hemoglobin 14.8 g/dL (14.0-18.0); Mean Corpuscular HGB CONC 33.4 g/dL (32.0-36.0); Mean Corpuscular Hemoglobin 30.8 pg (27.0-31.0); Mean Corpuscular Volume 92.2 fL (78.0-98.0); Mean Platelet Volume 7.8 fL (7.4-10.4); Platelet Count 199 thou/uL (130-400); White Blood Cell (WBC) Count 7.8 thou/uL (4.8-10.8)
[2018-10-01 19:05] LABS: ALT (SGPT) 19 U/L (8-55); AST (SGOT) 19 U/L (5-34); Alkaline Phosphatase 106 U/L (40-150); Anion Gap 12 mmol/L (10-20); BUN (Urea Nitrogen) 11 mg/dL (8.9-20.6); Bilirubin, Total 0.4 mg/dL (0.2-1.2); Calc. Creatinine Clearance 0 mL/min (70-130); Calcium 9.3 mg/dL (7.8-10.44); Carbon Dioxide 26 mmol/L (22-29); Chloride 103 mmol/L (98-107); Estimated GFR-MDRD 74; Globulin 3.1 g/dL (2.4-3.5); Glucose 258 mg/dL (70-105); Lipase 106 U/L (8-78); Potassium 3.9 mmol/L (3.5-5.1); Protein, Total 7.1 g/dL (6.0-8.3); Sodium 137 mmol/L (136-145)
[2018-10-01 19:25] LABS: CKMB 4.7 ng/mL (0-6.6)
--- NOTE | 2018-10-01 19:57 | RAD ---
CHEST ONE VIEW: 10/01/18 HISTORY: Chest pain and shortness of breath. COMPARISON: 08/27/18 . FINDINGS: Portable upright chest demonstrates a left sided transvenous pacemaker with unchanged lead position. Normal cardiac silhouette. The pulmonary hilum is normal. There is pulmonary vascular prominence. Sta ble hazy opacification left base. Adequate aeration of the upper lungs. No pneumothorax. IMPRESSION: Pulmonary vascular prominence. POS: [facility]
[2018-10-01] MEDS ORDERED: Acetaminophen 500 MG TAB ONE (21:09)
[2018-10-01 22:12] LABS: Troponin I 0.054 ng/mL (< 0.028)
[2018-10-01] MEDS ORDERED: Acetaminophen 650 MG Suppository PR PRN (22:58)
[2018-10-01] MEDS ORDERED: Senokot S 8.6-50 MG TAB PO PRN (22:58)
[2018-10-01] MEDS ORDERED: Bisacodyl 5 MG TAB PO PRN (22:58)
[2018-10-01] MEDS ORDERED: Ondansetron ODT 4 MG TAB PO PRN (22:58)
[2018-10-01] MEDS ORDERED: Nitroglycerin 0.4 MG TAB (25 Tab Bottle) PO PRN (22:58)
[2018-10-01] MEDS ORDERED: Acetaminophen 325 MG TAB PO PRN (22:58)
[2018-10-01] MEDS ORDERED: Bisacodyl 10 MG SUPP PR PRN (22:58)
[2018-10-01] MEDS ORDERED: Ondansetron PF 4 MG/2 ML Vial IVP PRN (22:58)
[2018-10-01] MEDS ORDERED: Calcium Carbonate 500 MG ChewTAB PO PRN (22:58)
[2018-10-01] MEDS ORDERED: Sodium Chloride 0.9% 1,000 ML IV SCH (23:00)
--- NOTE | 2018-10-01 23:00 | CT ---
CT ABDOMEN WITH CONTRAST CT PELVIS WITH CONTRAST 10/01/18 COMPARISON: None. CORRELATION: CT angiogram of the chest 08/27/18. HISTORY: Abdominal pain. Chest pain. FINDINGS: Redemonstration of parenchymal changes in the left lung base. Parenchymal opacity has not changed and measures 3.6 x 1.6 cm. The degree of pleural fluid in the left hemithorax has decreased, currently m easuring 4.0 x 1.0 cm (previously measuring 7.1 x 2 cm). Portal vein is patent. Unremarkable gallbladder. The liver, spleen, pancreas, and adrenal glands have appropriate enhancement. The right kidney is somewhat smaller than the contralateral side. Nevertheless, no evidence of obstru ctive uropathy. Punctate nonobstructing calculus is noted in the upper pole of the left renal pelvis. There appears to be scarring in the upper pole of the right kidney. Bilaterally, no obstructive urop athy. There are nonspecific mildly enlarged left periaortic lymph nodes. Supervisor Liquefaction enlarged lymph node measures 1.1 x 0.6 cm. Symmetric attenuation of the psoas muscles. No gastrohepatic, retrocrural or periportal lymphadenopathy. No mesenteric mass, free air or free fluid. There are few scattered nonspecific mildly enlarged centr al mesenteric lymph nodes. Limited evaluation of the alimentary canal due to lack of oral contrast administration. Multiple norm al caliber small bowel loops are identified. Fecalization of the distal and terminal ileum likely due to incompetent ileocecal valve, rather than an obstructive process. Scattered fecal material in a no ndistended, nondilated colon. Occasional diverticulum. No diverticulitis. Normal caliber appendix is noted. CT PELVIS: No mass, lymphadenopathy, free air or free fluid. Unremarkable urinary bladder. IMPRESSION: 1. Nonspecific intra-abdominal lymph nodes. Correlate for mesenteric lymphadenitis. 2. Diminutive right kidney with scarring in the upper pole of the right kidney. 3. Stable opacification of the left lung base. Interval decrease in size of a left pleural effus ion. POS: [facility]
[2018-10-01] MEDS ORDERED: HumaLOG 300 UNITS/3 ML VIAL SC PRN ×2 (23:04)
[2018-10-01] MEDS ORDERED: Dextrose 50% Abboject 50 ML SYRINGE SLOW IVP PRN (23:04)
[2018-10-01] MEDS ORDERED: Dextrose 5% in Water 1,000 ML IV PRN (23:04)
[2018-10-02] MEDS ORDERED: cloNIDine 0.1 MG TAB ONE (00:44)
[2018-10-02] MEDS ORDERED: hydrALAZINE 20 MG/ML VIAL ONE (01:35)
[2018-10-02] MEDS ORDERED: HYDROcodone/Acetaminophen 5/325 mg Tablet ONE (02:06)
[2018-10-02 03:17] LABS: #Basophils 0.1 thou/uL (0.0-0.2); #Eosinphils 0.3 thou/uL (0.0-0.7); #Lymphocytes 2.1 thou/uL (1.20-3.40); #Monocytes 0.8 thou/uL (0.11-0.59); #Neutrophils 4.5 thou/uL (1.40-6.50); %Basophils 0.9 % (0.0-1.0); %Eosinophils 3.9 % (0.0-10.0); %Lymphocytes 26.9 % (21.0-51.0); %Neutrophils 58.4 % (42.0-75.0); Hemoglobin 14.1 g/dL (14.0-18.0); Mean Corpuscular HGB CONC 34.1 g/dL (32.0-36.0); Mean Corpuscular Hemoglobin 31.4 pg (27.0-31.0); Mean Corpuscular Volume 92.3 fL (78.0-98.0); Mean Platelet Volume 8.3 fL (7.4-10.4); Platelet Count 198 thou/uL (130-400); RBC Distribution Width 13.1 % (11.5-14.5); White Blood Cell (WBC) Count 7.7 thou/uL (4.8-10.8)
[2018-10-02 03:21] VITALS: BP 156/84; TEMP 97.9; BMI 40.6
[2018-10-02 03:37] LABS: Anion Gap 14 mmol/L (10-20); BUN (Urea Nitrogen) 10 mg/dL (8.9-20.6); Calc. Creatinine Clearance 180 mL/min (70-130); Calcium 9.1 mg/dL (7.8-10.44); Carbon Dioxide 25 mmol/L (22-29); Cardiac Risk 3.1 (Less than 4.5); Chloride 106 mmol/L (98-107); Cholesterol 105 mg/dl (< 200 Desired); Estimated GFR-MDRD Greater than 90; Glucose 135 mg/dL (70-105); HDL Cholesterol 34 mg/dL (>60 Neg Risk); LDL Cholesterol, Calculated 60 mg/dL; Potassium 3.8 mmol/L (3.5-5.1); Sodium 141 mmol/L (136-145); Triglycerides 54 mg/dL (Less than 150)
[2018-10-02] MEDS ORDERED: Nitroglycerin 2% Ointment 1 INCH/1 GM Packet TOP SCH (06:00)
[2018-10-02] MEDS ORDERED: Carvedilol 3.125 MG TAB PO SCH (08:00)
--- NOTE | 2018-10-02 08:04 | ULT ---
RIGHT UPPER QUADRANT ULTRASOUND: DATE: 10/01/2018. HISTORY: Right upper quadrant abdominal pain and slightly elevated lipase. COMPARISON: CT abdomen on 10/01/2018 obtained at 2230 hours. FINDINGS: The majority of the pancreas is obscured by bowel gas. The pancreas is not well evaluated on this ex am. Gallbladder wall thickness is at the upper limits of normal. No gallbladder calculi are seen and the re is no pericholecystic fluid identified. The common duct measures 0.4 cm in diameter which is with in normal limits. There is mild deformity of the right kidney which does appear small in size. The right kidney measur es 9.7 cm x 2.4 cm. The kidney demonstrated asymmetry in size compared to the left kidney with areas of probable scarring involving the anterior mid and superior pole of the right kidney which likely a ccounts for appearance of the kidney on sonographic evaluation. The right kidney also has a similar appearance and was partially visualized on CTA of thorax on 08/27/2018. The liver demonstrates a suggestion of mild increased echogenicity which may be related to mild fatty infiltration. Visualized IVC has a normal sonographic appearance. IMPRESSION: 1. No gallbladder calculi are visualized, and the common duct is normal in caliber. 2. Pancreas is mostly obscured by bowel gas. 3. Suggestion of mild fatty infiltration of the liver. 4. Scarring and atrophy of the right kidney better visualized on CT exam. POS: [facility]
--- NOTE | 2018-10-02 08:47 | HP ---
CHIEF COMPLAINT: Chest pain. HISTORY OF PRESENT ILLNESS: This is a 38-year-old male with past medical history of COPD, diabetes mellitus type 2, [place] in the past, CHF, presenting with chest pain located at the midsternal region and radiated to the right aspect of his chest. The patient states that in the morning he was having the chest pain, but he went to work and progressively chest pain became unbearable, had became worsened on the pain scale of 8/10. The patient states that the chest pain radiated to the back at times. It was intermittent and it became constant over time. The patient states that he became nauseous, but he did not vomit. Due to the worsening of the chest pain and the tightness of the chest, the patient thought it is better for him to come to the hospital to be evaluated. Per the patient, he had an echo and stress test in August. The patient also endorses having a pacemaker placed in the past. The patient denies any headaches, fever, chills, cough, shortness of breath, suprapubic discomfort, dysuria, increased frequency with urination, hematuria, hematochezia, melena, constipation, or diarrhea. The patient was admitted on August 27, 2018 in our hospital for chest discomfort and during that time, the patient was seen by Dr. David. An echo was done during that time, which showed the patient's ejection fraction was 50% to 55%. The patient's pacemaker was interrogated during that time as well. The A-lead was turned off and the patient needed revision outpatient. The patient's Lasix dose was also reduced during that time and hydrochlorothiazide was also discontinued during the time of the visit. REVIEW OF SYSTEMS: Positive for chest discomfort and nausea, otherwise as documented in the HPI. All other systems are reviewed and are negative. PAST MEDICAL HISTORY: Significant for COPD, asthma, diabetes mellitus type 2, CHF, DVTs, and [place] in the past. FAMILY HISTORY: Reviewed and noncontributory to this visit. PAST SURGICAL HISTORY: Pacemaker placement in 2017. PSYCHIATRIC HISTORY: No previous psych history. SOCIAL HISTORY: The patient denies alcohol use, denies any illicit drugs of abuse. The patient denies any smoking history. ALLERGIES: THE PATIENT DOES NOT HAVE ANY DRUG ALLERGIES. CURRENT MEDICATIONS: The patient takes; 1. Metformin 1000 b.i.d. 2. Humulin 70/30, 30 units b.i.d. 3. Gabapentin, the patient takes, 300 mg t.i.d. 4. Lasix 80 mg. 5. Atenolol 100 mg. 6. Lisinopril 10 mg. 7. Carvidelol 12.5 mg. PHYSICAL EXAMINATION: VITAL SIGNS: The patient's blood pressure is 176/106, pulse of 94, respiratory rate of 18, temperature of 99.2, and O2 saturation of 100. GENERAL: The patient is awake, alert, and oriented x3, not in acute distress. The patient is able to speak to me in full sentences. HEENT: Normocephalic and atraumatic. Pupils are equally round and reactive to light. Extraocular movements are intact. No scleral icterus. No conjunctival pallor. NECK: No JVD. Trachea is midline. Full range of motion. Supple. Mucous membranes are moist. LUNGS: Clear to auscultation bilaterally. No wheezing, no rales, no rhonchi appreciated. CARDIAC: Positive S1 and S2. Regular rate and rhythm. No murmurs, no gallops, no rubs appreciated. ABDOMEN: The patient do have some mild tenderness at the right upper quadrant with deep palpation. EXTREMITIES: The patient has 5/5 upper extremity strength and 5/5 lower extremity strength. No edema noted. Good pulses bilaterally at the upper and lower extremities. NEUROLOGIC: Cranial nerves 2 through 12 grossly intact. No neurologic deficits noted. SKIN: Warm, dry, and intact. PSYCH: Normal affect. DIAGNOSTIC DATA: A 12-lead EKG shows a right bundle-branch block with a rate of 90, sinus rhythm. Ultrasound of the abdomen is not read. We are going to await for the final read. Chest x-ray shows pulmonary vascular prominence. LABORATORY DATA: WBC 7.8, hemoglobin is 14.8, hematocrit is 44.3, and platelet count is 189. Electrolytes; sodium is 137, potassium is 3.9, chloride is 103, anion gap of 12, BUN is 11, creatinine is 1.30, glucose is 258. Troponin is 0.052 and BNP is 201.7. Lipase is 106. ASSESSMENT AND PLAN: This is a 38-year-old male with multiple comorbidities and extensive cardiac history, being admitted for; 1. Chest discomfort, most likely due to unstable angina. At this point, the patient previously had echo and stress test done in the hospital. Due to this, the patient will probably have to undergo cardiac cath at this time. We will consult Cardiology. We will start the patient on his home medications. We will follow up with Cardiology's recommendations. 2. Acute kidney injury likely due to dehydration. The patient has been started on fluids. We will follow up on morning creatinine. 3. Diabetes mellitus type 2, uncontrolled. At this point, we will continue the patient on insulin sliding scale and we will try to control the patient's blood sugar between 140 to 180. 4. Elevated troponins likely due to acute congestive heart failure. The patient has history of heart failure. At this point, we will continue the patient on his home medications and we have consulted Cardiology. We will follow up with their recommendations. 5. History of chronic obstructive pulmonary disease, at this point stable. We will continue the patient on his current management of his chronic obstructive pulmonary disease. 6. Hypertension, uncontrolled. We will continue the patient on his home medications and we will add p.r.n. blood pressure medications to control the patient's blood pressure accordingly. 7. Deep vein thrombosis, GI prophylaxis. Job ID: [id number]
[2018-10-02] MEDS ORDERED: Potassium Chloride 10 MEQ TAB PO SCH (09:00)
[2018-10-02] MEDS ORDERED: Famotidine 20 MG TAB PO SCH (09:00)
[2018-10-02] MEDS ORDERED: Aspirin 325 MG TAB PO SCH (09:00)
[2018-10-02] MEDS ORDERED: Famotidine/PF 20 mg/2ml Vial SLOW IVP SCH (09:00)
[2018-10-02] MEDS ORDERED: Furosemide 40 MG TAB PO SCH (09:00)
[2018-10-02] MEDS ORDERED: Gabapentin 300 MG CAP PO SCH (09:00)
--- NOTE | 2018-10-02 10:23 | PDOC.PN ---
- Subjective Encounter Start Date: 10/02/18 Encounter Start Time: 10:00 Subjective: Patient reports 2 days of right chest and later abd wall pain, worse with -: cough which started yesterday. No significant SOB. No fever. No sputum. - Objective Resuscitation Status - Order Detail: 10/01/18 22:58 Resuscitation Status Routine Resuscitation Status: FULL: Full Resuscitation MAR Reviewed: Yes Vital Signs & Weight: Vital Signs (12 hours) Temp Pulse Resp BP Pulse Ox 10/02/18 03:03 97.9 F 74 16 156/84 H 95 10/01/18 22:58 95 Weight Weight 300 lb 1.6 oz I&O: 10/01/18 10/02/18 10/03/18 06:59 06:59 06:59 Intake Total 50 Output Total 600 Balance 50 -600 Result Diagrams: 10/02/18 02:39 10/02/18 02:39 Additional Labs: Accuchecks 10/02/18 03:17 POC Glucose 129 H Phys Exam - Physical Examination Constitutional: NAD HEENT: moist MMs Respiratory: no wheezing, no rales, no rhonchi TTP right chest wall Cardiovascular: RRR, no significant murmur Gastrointestinal: soft, positive bowel sounds TTP RUQ, no guarding Musculoskeletal: no edema Neurological: non-focal, moves all 4 limbs Psychiatric: normal affect, A&O x 3 Dx/Plan (1) Chest wall injury Code(s): S29.9XXA - UNSPECIFIED INJURY OF THORAX, INITIAL ENCOUNTER Status: Acute Comment: Dr. Wade has evaluated the patient. Neg stress test in last 6 months. Pain in reproducible on palpation and worse with cough and movement. Appears to be musculoskeletal in origin. Will treat cough and pain. Can d/c home. No evidence of ACS. (2) COPD exacerbation Code(s): J44.1 - CHRONIC OBSTRUCTIVE PULMONARY DISEASE W (ACUTE) EXACERBATION Status: Acute (3) Diastolic CHF Code(s): I50.30 - UNSPECIFIED DIASTOLIC (CONGESTIVE) HEART FAILURE Status: Chronic (4) CAD (coronary artery disease) Code(s): I25.10 - ATHSCL HEART DISEASE OF [place] CORONARY ARTERY W/O ANG PCTRS Status: Chronic (5) DM type 2 (diabetes mellitus, type 2) Status: Chronic - Plan cont current plan of care D/C home * .
--- NOTE | 2018-10-02 11:19 | CON ---
DATE OF CONSULTATION: REASON FOR CONSULTATION: Chest pain. PRIMARY TECHNICAL DEVELOPER: Dr. Mauro Block. HISTORY OF PRESENT ILLNESS: Mr. King is a 38-year-old gentleman, who has been seen and evaluated by Dr. Abrahan David in the past. He recently presented with chest pain. The pain is sharp. It has been noted over the last day and a half. It is intensified per patient history with cough. He has had a dry hacking cough recently. No fevers or chills. PAST MEDICAL HISTORY: 1. CVA. 2. COPD. 3. Diabetes mellitus. 4. Hypertension. 5. DVT. 6. CHF, status post pacemaker. 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 No current tobacco or alcohol use. ALLERGIES: LISINOPRIL, METFORMIN AND TRIAMCINOLONE. HOME MEDICATIONS: Include, 1. Hydrochlorothiazide. 2. Gabapentin. 3. Lasix. 4. Insulin. 5. . REVIEW OF SYSTEMS: A 10-point review of systems is reviewed and as above, otherwise negative. PHYSICAL EXAMINATION: GENERAL: Patient is a pleasant male who is in no acute distress. The patient appears their stated age. VITAL SIGNS: Blood pressure 156/84, pulse 74, and temperature 97.9. NEUROLOGIC: The patient is alert and oriented x3 with no focal neurologic deficits. HEENT: Sclerae without icterus. Mouth has moist mucous membranes with normal pallor. NECK: No JVD. Carotid upstroke brisk. No bruits bilaterally. LUNGS: Clear to auscultation with unlabored respirations. BACK: No scoliosis or kyphosis. CARDIAC: Regular rate and rhythm with normal S1 and S2. No S3 or S4 noted. No significant rubs, murmurs, thrills, or gallops noted throughout the precordium. PMI is not displaced. There is no parasternal heave. ABDOMEN: Soft, nontender, nondistended. No peritoneal signs present. No hepatosplenomegaly. No abnormal striae. EXTREMITIES: 2+ femoral and 2+ dorsalis pedis pulses. No cyanosis, clubbing, or edema. SKIN: No gross abnormalities. DIAGNOSTIC STUDIES: Previous echo dated 08/29/2018 with LVEF of 50% to 55% with AICD present. Previous stress study dated 08/29/2018. Negative stress with LVEF of 52%. EKG; normal sinus rhythm, nonspecific ST-T wave changes. IMPRESSION: 1. Chest pain. 2. Hypertension. 3. Diabetes mellitus. RECOMMENDATIONS: Mr. King' symptoms are not felt to be typical of angina. His symptoms are constant, but worse with cough. This is likely URI related in addition to musculoskeletal. We would treat symptoms. From my standpoint, it would be okay for discharge with a nonsteroidal therapy and medication for URI if recommended per primary team. Otherwise, I have no further recommendations . Job ID: [id number]
--- NOTE | 2018-10-03 05:12 | DIS ---
DATE OF ADMISSION: 10/01/2018 DATE OF DISCHARGE: 10/02/2018 PRIMARY CARE PHYSICIAN: [facility]. REASON FOR ADMISSION: Chest pain. DIAGNOSES AT DISCHARGE: 1. Musculoskeletal pain in the chest wall. 2. Chronic obstructive pulmonary disease exacerbation. 3. Diastolic congestive heart failure. 4. Coronary artery disease. 5. Diabetes mellitus type 2. CONSULTATIONS: Cardiology, Dr. Wade. PROCEDURES: 1. Ultrasound of the right upper quadrant showing no gallbladder stones and normal common bile duct. No other abnormalities. 2. CT scan of the abdomen and pelvis with contrast showing nonspecific intraabdominal lymph nodes. Small right kidney with scar in the upper pole and some stable opacification of the left lung base with decrease in size of left pleural effusion. SUMMARY OF HOSPITAL COURSE: This is a 38-year-old obese Afro-[place] male with a known history of coronary artery disease, diastolic congestive heart failure, COPD, and diabetes mellitus type 2. He presents with chest pain for two days located in the right side of the chest, eventually moving down the right side of the abdomen as well. The pain is worse with any deep breath or cough, and movement. It feels this is like an oil rig drilling down into the ground. The patient was evaluated in the emergency room. He had indeterminate troponins of 0.05, which remained stable. His lipase was also just over 106. The patient had a CT scan and ultrasound as above. He was put on observation in the hospital. Dr. Wade was consulted. Dr. Wade did evaluate the patient and determined that this was not cardiac in origin and it was musculoskeletal. The patient has had a recent negative stress test in the last six months. He was breathing well with normal oxygenation, but he is having some cough since yesterday, which is worsening. The pain might be related to COPD. So we will treat that with inhaler and cough medicines. The patient is being discharged with nonsteroidal anti-inflammatory medications for the pain. DISCHARGE MANAGEMENT: Discharge home. FOLLOWUP: Follow up with primary care physician in the next 1-2 weeks. ACTIVITY: As tolerated. DIET: Diabetic fluid-restricted diet. MEDICATIONS: Patient is resume all his home medications plus: 1. Albuterol sulfate inhaler two puffs every 4 hours as needed for coughing, wheezing, shortness of breath. 2. Tessalon Perles 2 caps 3 times a day as needed for cough. 3. Ibuprofen 800 mg 3 times a day as needed for pain. Job ID: [id number]
== END 2018-10-02 12:07 | disposition home or self-care (01) ==
LOC: ERS 18:00 → 2SW 22:00
PROVIDERS: ADMIT Internal Medicine; ATTEND Internal Medicine
DX: R07.89 Other chest pain (principal); J44.1 Chronic obstructive pulmonary disease with (acute) exacerbation; E11.9 Type 2 diabetes mellitus without complications; I11.0 Hypertensive heart disease with heart failure; I50.32 Chronic diastolic (congestive) heart failure; I25.2 Old myocardial infarction; I25.10 Atherosclerotic heart disease of native coronary artery without angina pectoris; N17.9 Acute kidney failure, unspecified; R79.9 Abnormal finding of blood chemistry, unspecified; Z86.718 Personal history of other venous thrombosis and embolism; Z95.0 Presence of cardiac pacemaker; Z79.4 Long term (current) use of insulin; Z79.899 Other long term (current) drug therapy; Z86.73 Personal history of transient ischemic attack (TIA), and cerebral infarction without residual deficits; Z88.8 Allergy status to other drugs, medicaments and biological substances
CPT/HCPCS: 36415; 36416; 71045; 74177; 76705; 80048; 80053; 80061; 82553; 83690; 83880; 84484; 85025; 93005; 94760; 96374; G0378; J0360

== ENCOUNTER 2018-10-08 15:53 | Emergency (ER) | payer SELFPAY ==
[2018-10-08 17:22] LABS: Bilirubin Small (Negative); Blood, Urine Negative (Negative); Clarity CLEAR (Clear); Glucose, Urine (Dipstick) Negative (Negative); Leukocyte Trace (Negative); Nitrite Negative (Negative); Protein, Urine (Dipstick) 100 mg/dL (Neg-Trace); Specific Gravity, Urine 1.029 (1.002-1.036); pH, Urine 5.5 (5.0-9.0)
[2018-10-08 17:27] LABS: Bacteria/HPF None Seen HPF (None Seen); Hyaline Casts/LPF 0-3 HYALINE CAST LPF (0-3 Hyaline); Pathc Cast-AUWi Flag 0.14 (0-2.49); RBC/HPF 0-3 HPF (0-3); Squamous Epithelial 0-3 HPF (0-3); WBC/HPF 0-3 HPF (0-3)
[2018-10-08 18:40] LABS: #Basophils 0.1 thou/uL (0.0-0.2); #Eosinphils 0.2 thou/uL (0.0-0.7); #Lymphocytes 2.9 thou/uL (1.20-3.40); #Monocytes 0.9 thou/uL (0.11-0.59); #Neutrophils 6.9 thou/uL (1.40-6.50); %Basophils 0.7 % (0.0-1.0); %Eosinophils 1.8 % (0.0-10.0); %Lymphocytes 26.5 % (21.0-51.0); %Monocytes 8.3 % (0.0-10.0); %Neutrophils 62.7 % (42.0-75.0); Hemoglobin 14.6 g/dL (14.0-18.0); Mean Corpuscular HGB CONC 34.1 g/dL (32.0-36.0); Mean Corpuscular Hemoglobin 31.3 pg (27.0-31.0); Mean Corpuscular Volume 91.7 fL (78.0-98.0); Mean Platelet Volume 7.7 fL (7.4-10.4); Platelet Count 273 thou/uL (130-400); RBC Distribution Width 12.9 % (11.5-14.5); Red Blood Cell (RBC) Count 4.67 mill/uL (4.70-6.10)
[2018-10-08 18:55] LABS: ALT (SGPT) 18 U/L (8-55); AST (SGOT) 20 U/L (5-34); Acetaminophen Less than 6.0 mcg/mL (10.0-30.0); Albumin 4.2 g/dL (3.5-5.0); Alcohol Less than 10 mg/dL (Less than 10); Alkaline Phosphatase 101 U/L (40-150); Anion Gap 15 mmol/L (10-20); BUN (Urea Nitrogen) 22 mg/dL (8.9-20.6); Bilirubin, Total 0.6 mg/dL (0.2-1.2); CK (CPK) 381 U/L (30-200); Calc. Creatinine Clearance 0 mL/min (70-130); Carbon Dioxide 29 mmol/L (22-29); Chloride 99 mmol/L (98-107); Estimated GFR-MDRD 55; Globulin 3.7 g/dL (2.4-3.5); Glucose 171 mg/dL (70-105); Potassium 3.8 mmol/L (3.5-5.1); Protein, Total 7.9 g/dL (6.0-8.3); Salicylate Less than 8.0 mg/dL (15.0-30.0); Sodium 139 mmol/L (136-145)
[2018-10-08 19:18] LABS: Amphetamine Not Detected (NotDetected); Barbiturates Screen Not Detected (NotDetected); Benzodiazepine Screen Not Detected (NotDetected); Cocaine Metabolite Screen Not Detected (NotDetected); Medtox Control Line Valid? VALID (VALID); Medtox Reader # READER 1; Methadone Not Detected (NotDetected); Methamphetamine Not Detected (NotDetected); Opiate Screen Not Detected (NotDetected); Oxycodone Screen Not Detected (NotDetected); Phencyclidine (PCP) Not Detected (NotDetected); THC/Cannabinoid Screen Not Detected (NotDetected); Tricyclic Screen Not Detected (NotDetected)
== END 2018-10-08 22:50 | disposition home or self-care (01) ==
LOC: ERS 15:53
DX: F43.20 Adjustment disorder, unspecified (principal); F32.9 Major depressive disorder, single episode, unspecified; N28.9 Disorder of kidney and ureter, unspecified; J44.9 Chronic obstructive pulmonary disease, unspecified; E11.9 Type 2 diabetes mellitus without complications; I50.9 Heart failure, unspecified; Z86.718 Personal history of other venous thrombosis and embolism; I25.2 Old myocardial infarction; Z79.84 Long term (current) use of oral hypoglycemic drugs; Z79.899 Other long term (current) drug therapy
CPT/HCPCS: 80306; 80307; 81003; 81015; 82550; 84443; 85025; 93005; 96360

== ENCOUNTER 2018-10-09 05:15 | Emergency (ER) | payer SELFPAY ==
[2018-10-10] MEDS ORDERED: Ondansetron PF 4 MG/2 ML Vial ONE (00:42)
== END 2018-10-09 05:55 | disposition home or self-care (01) ==
LOC: ERS 05:15
DX: R10.9 Unspecified abdominal pain (principal); J44.9 Chronic obstructive pulmonary disease, unspecified; E11.9 Type 2 diabetes mellitus without complications; I25.2 Old myocardial infarction; Z86.718 Personal history of other venous thrombosis and embolism; Z79.899 Other long term (current) drug therapy; Z79.4 Long term (current) use of insulin
CPT/HCPCS: 99283; J2405

== ENCOUNTER 2018-10-09 18:16 | Emergency (ER) | payer SELFPAY ==
[~2018-10-09 18:16] MED LIST changes: -ISOVUE-370 76%-LOCM 1 ML ONE; +Iopamidol 370 76% 100 ML VIAL ONE
[2018-10-09 19:10] LABS: Bilirubin Small (Negative); Blood, Urine Negative (Negative); Clarity CLOUDY (Clear); Glucose, Urine (Dipstick) 100 mg/dL (Negative); Leukocyte Negative (Negative); Nitrite Negative (Negative); Protein, Urine (Dipstick) 100 mg/dL (Neg-Trace); Specific Gravity, Urine 1.027 (1.002-1.036)
[2018-10-09 19:14] LABS: Bacteria/HPF Rare-Few HPF (None Seen); Pathc Cast-AUWi Flag 0.58 (0-2.49); RBC/HPF 0-3 HPF (0-3); Squamous Epithelial None Seen HPF (0-3); WBC/HPF 21-50 HPF (0-3); Yeast-AUWi Flag 6.8 (0-25.0)
[2018-10-09 19:16] LABS: Sperm-AUWi Flag 1168.2 (0-9.9)
[2018-10-09 19:21] LABS: Sperm/HPF 2+ HPF (None Seen)
--- NOTE | 2018-10-09 19:21 | RAD ---
FRONTAL VIEW CHEST: 10/09/18 COMPARISON: 10/01/18 INDICATION: Chest pain. FINDINGS: There is a left side dual lead cardiac pacing device. The cardiac silhouette is accentuated by portab le technique. There is mild patchy left basilar density. Right lung is clear. There is mild blunting of the left lateral costophrenic sulcus. IMPRESSION: Patchy left basilar density which may be on the basis of atelectasis, scar and possibly a small compo nent of pleural fluid. Superimposed focal pneumonia may also be present. Recommend followup with two view chest to confirm resolution upon completion of treatment regimen. POS: [facility]
[2018-10-09 19:22] LABS: Hyaline Casts/LPF NONE SEEN LPF (0-3 Hyaline)
[2018-10-09 19:51] LABS: #Eosinphils 0.3 thou/uL (0.0-0.7); #Lymphocytes 2.6 thou/uL (1.20-3.40); #Monocytes 0.9 thou/uL (0.11-0.59); #Neutrophils 5.5 thou/uL (1.40-6.50); %Basophils 0.5 % (0.0-1.0); %Eosinophils 2.9 % (0.0-10.0); %Lymphocytes 27.7 % (21.0-51.0); %Monocytes 9.8 % (0.0-10.0); %Neutrophils 59.2 % (42.0-75.0); Hemoglobin 14.2 g/dL (14.0-18.0); Mean Corpuscular HGB CONC 33.3 g/dL (32.0-36.0); Mean Corpuscular Hemoglobin 30.7 pg (27.0-31.0); Mean Corpuscular Volume 92.3 fL (78.0-98.0); Mean Platelet Volume 7.3 fL (7.4-10.4); Platelet Count 253 thou/uL (130-400); Red Blood Cell (RBC) Count 4.63 mill/uL (4.70-6.10); White Blood Cell (WBC) Count 9.3 thou/uL (4.8-10.8)
[2018-10-09 20:21] LABS: ALT (SGPT) 21 U/L (8-55); AST (SGOT) 22 U/L (5-34); Albumin 4.3 g/dL (3.5-5.0); Alkaline Phosphatase 102 U/L (40-150); Anion Gap 16 mmol/L (10-20); Bilirubin, Total 0.4 mg/dL (0.2-1.2); CK (CPK) 476 U/L (30-200); Calc. Creatinine Clearance 0 mL/min (70-130); Calcium 9.5 mg/dL (7.8-10.44); Carbon Dioxide 27 mmol/L (22-29); Chloride 101 mmol/L (98-107); Estimated GFR-MDRD 71; Globulin 3.7 g/dL (2.4-3.5); Glucose 175 mg/dL (70-105); Lipase 105 U/L (8-78); Sodium 140 mmol/L (136-145)
[2018-10-09 20:34] LABS: CKMB 3.9 ng/mL (0-6.6)
[2018-10-09 20:46] LABS: BUN (Urea Nitrogen) 18 mg/dL (8.9-20.6)
--- NOTE | 2018-10-09 23:44 | ULT ---
GALLBLADDER ULTRASOUND: 10/09/18 COMPARISON: 10/01/18. INDICATION: Right upper quadrant pain. FINDINGS: There is mild increased echogenicity of the hepatic parenchyma. There is a small region of decreased echogenicity centrally within the liver which may relate to focal fatty sparing. The gallbladder is m ildly contracted. No evidence of acute gallbladder pathology. No shadowing cholelithiasis is seen. co mmon duct is within normal limits measuring 5 mm in diameter. No ascites. IMPRESSION: 1. Increased echogenicity of the liver which may relate to hepatic steatosis. Correlation with l iver function enzymes may prove useful. 2. No acute gallbladder pathology is identified. POS: [facility]
[2018-10-10 01:25] LABS: Troponin I 0.035 ng/mL (< 0.028)
--- NOTE | 2018-10-10 07:49 | CT ---
ABDOMEN AND PELVIS CT WITH CONTRAST: Date: 10/09/18 COMPARISON: 10/01/18. INDICATION: Abdominal pain. FINDINGS: Redemonstration of pleural based density at the inferior left chest, incompletely evaluated on the ba sis of this exam. The diminutive right kidney is stable. Left kidney remains unremarkable. The previo usly mentioned mildly prominent retroperitoneal lymph nodes are grossly stable. The bowel is incomple tely evaluated without enteric contrast. There is a noninflamed, fat-containing periumbilical hernia. Moderate retained fecal material is present throughout the colon. Abdominal aorta is normal in calib er. Urinary bladder is grossly unremarkable. There is a fat-containing right inguinal hernia. IMPRESSION: Grossly stable CT when comparing to 10/01/18 exam. Persistent mass-like prominence along the posterio r pleura of the inferior left chest, as was depicted on recent exam. Continued follow-up is recommend ed. POS: [facility]
[2018-10-11 01:22] LABS: Chlamydia by PCR Not Detected (NotDetected); GC by PCR Not Detected (NotDetected)
== END 2018-10-10 01:55 | disposition home or self-care (01) ==
LOC: ERS 18:16
DX: R10.13 Epigastric pain (principal); R30.0 Dysuria; I13.0 Hypertensive heart and chronic kidney disease with heart failure and stage 1 through stage 4 chronic kidney disease, or unspecified chronic kidney disease; E66.9 Obesity, unspecified; E11.22 Type 2 diabetes mellitus with diabetic chronic kidney disease; N18.9 Chronic kidney disease, unspecified; I50.9 Heart failure, unspecified; R79.89 Other specified abnormal findings of blood chemistry; I25.2 Old myocardial infarction; J44.9 Chronic obstructive pulmonary disease, unspecified; Z86.718 Personal history of other venous thrombosis and embolism; Z79.4 Long term (current) use of insulin; Z79.899 Other long term (current) drug therapy
CPT/HCPCS: 36415; 71045; 74177; 76705; 80053; 81003; 81015; 82550; 82553; 83690; 84484; 85025; 87086; 87491; 87591; 93005; 96361; 96374

== ENCOUNTER 2018-10-13 18:40 | Emergency (ER) | payer SELFPAY ==
--- NOTE | 2018-10-13 19:58 | CT ---
CT BRAIN: Date: 10-13-18 Provided Clinical History: Head pain status post injury. FINDINGS: The ventricular system appears normal in size and morphology. There is no evidence for intracranial h emorrhage or mass effect. The extracranial soft tissues and osseous structures demonstrate no signifi cant abnormality. IMPRESSION: No evidence for intracranial hemorrhage or mass effect. POS: [facility]
--- NOTE | 2018-10-13 20:37 | CT ---
CT CERVICAL SPINE 10/13/18 PROVIDED CLINICAL HISTORY: Fall with neck pain. FINDINGS: Evaluation is limited by patient motion. There is no evidence for fracture or traumatic subluxation. 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 No prevertebral soft tissue swelling apparent. The visual ized lung apices appear clear. IMPRESSION: No evidence for fracture or traumatic subluxation. POS: [facility]
--- NOTE | 2018-10-13 20:41 | RAD ---
THORACIC SPINE RADIOGRAPHS THREE VIEWS: 10/13/2018 PROVIDED CLINICAL HISTORY: Back pain status post injury. FINDINGS: Thoracic alignment appears normal. Vertebral body heights appear preserved. Pedicles appear intact. IMPRESSION: No evidence for an acute osseous abnormality. POS: [facility]
--- NOTE | 2018-10-13 20:41 | RAD ---
LUMBAR SPINE RADIOGRAPH TWO VIEWS 10/13/18 PROVIDED CLINICAL HISTORY: Back pain status post fall. FINDINGS: Five nonribbearing lumbar type vertebral bodies are present. Lumbar alignment appears normal. vertebr al body heights appear preserved. Osteophyte formation is seen about L1-2. Pedicles appear intact. IMPRESSION: No evidence for an acute osseous abnormality. POS: [facility]
--- NOTE | 2018-10-13 20:42 | RAD ---
RIGHT ANKLE RADIOGRAPHS THREE VIEWS 10/13/18 PROVIDED CLINICAL HISTORY: Right ankle pain status post injury. FINDINGS: No evidence for fracture or other acute osseous abnormality. If there is persistent clinical concern, conservative management and followup imaging are advised. IMPRESSION: As above. POS: [facility]
[2018-10-13] MEDS ORDERED: Lisinopril 10 MG TAB ONE (20:50)
[2018-10-13 21:15] LABS: #Eosinphils 0.3 thou/uL (0.0-0.7); #Lymphocytes 1.9 thou/uL (1.20-3.40); #Monocytes 0.9 thou/uL (0.11-0.59); #Neutrophils 6.6 thou/uL (1.40-6.50); %Basophils 0.3 % (0.0-1.0); %Eosinophils 2.8 % (0.0-10.0); %Lymphocytes 20.1 % (21.0-51.0); %Neutrophils 67.8 % (42.0-75.0); Hemoglobin 13.9 g/dL (14.0-18.0); Mean Corpuscular HGB CONC 33.8 g/dL (32.0-36.0); Mean Corpuscular Hemoglobin 31.1 pg (27.0-31.0); Mean Corpuscular Volume 92.3 fL (78.0-98.0); Mean Platelet Volume 7.9 fL (7.4-10.4); Platelet Count 227 thou/uL (130-400); RBC Distribution Width 13.1 % (11.5-14.5); Red Blood Cell (RBC) Count 4.46 mill/uL (4.70-6.10); White Blood Cell (WBC) Count 9.7 thou/uL (4.8-10.8)
[2018-10-13] MEDS ORDERED: HYDROcodone/Acetaminophen 10/325 mg Tablet ONE (21:39)
[2018-10-13 21:48] LABS: ALT (SGPT) 50 U/L (8-55); AST (SGOT) 34 U/L (5-34); Albumin 4.2 g/dL (3.5-5.0); Alkaline Phosphatase 133 U/L (40-150); Anion Gap 14 mmol/L (10-20); BUN (Urea Nitrogen) 15 mg/dL (8.9-20.6); Bilirubin, Total 0.5 mg/dL (0.2-1.2); Calc. Creatinine Clearance 0 mL/min (70-130); Calcium 9.8 mg/dL (7.8-10.44); Carbon Dioxide 27 mmol/L (22-29); Chloride 100 mmol/L (98-107); Estimated GFR-MDRD 68; Globulin 3.5 g/dL (2.4-3.5); Glucose 368 mg/dL (70-105); Protein, Total 7.7 g/dL (6.0-8.3); Sodium 137 mmol/L (136-145)
== END 2018-10-14 02:23 | disposition home or self-care (01) ==
LOC: ERS 18:40
DX: T16.2XXA Foreign body in left ear, initial encounter (principal); S09.90XA Unspecified injury of head, initial encounter; I10 Essential (primary) hypertension; I25.2 Old myocardial infarction; E66.9 Obesity, unspecified; J44.9 Chronic obstructive pulmonary disease, unspecified; E11.9 Type 2 diabetes mellitus without complications; I50.9 Heart failure, unspecified; Z86.718 Personal history of other venous thrombosis and embolism; Z79.899 Other long term (current) drug therapy; Z79.891 Long term (current) use of opiate analgesic; Z79.4 Long term (current) use of insulin; W11.XXXA Fall on and from ladder, initial encounter
CPT/HCPCS: 36415; 70450; 72070; 72100; 72125; 80053; 85025; 94640; J7620; Q4166-KX-JC

== ENCOUNTER 2018-10-18 08:32 | Emergency (ER) | payer SELFPAY ==
[2018-10-18 09:12] LABS: #Eosinphils 0.3 thou/uL (0.0-0.7); #Lymphocytes 1.8 thou/uL (1.20-3.40); #Monocytes 0.9 thou/uL (0.11-0.59); #Neutrophils 8.6 thou/uL (1.40-6.50); %Basophils 0.3 % (0.0-1.0); %Eosinophils 2.4 % (0.0-10.0); %Lymphocytes 15.4 % (21.0-51.0); %Monocytes 7.4 % (0.0-10.0); %Neutrophils 74.6 % (42.0-75.0); Mean Corpuscular HGB CONC 33.5 g/dL (32.0-36.0); Mean Corpuscular Hemoglobin 31.4 pg (27.0-31.0); Mean Corpuscular Volume 93.8 fL (78.0-98.0); Mean Platelet Volume 8.2 fL (7.4-10.4); Platelet Count 226 thou/uL (130-400); RBC Distribution Width 13.4 % (11.5-14.5); Red Blood Cell (RBC) Count 4.45 mill/uL (4.70-6.10); White Blood Cell (WBC) Count 11.5 thou/uL (4.8-10.8)
[2018-10-18 09:36] LABS: ALT (SGPT) 56 U/L (8-55); AST (SGOT) 23 U/L (5-34); Albumin 3.8 g/dL (3.5-5.0); Alkaline Phosphatase 106 U/L (40-150); Anion Gap 15 mmol/L (10-20); BUN (Urea Nitrogen) 20 mg/dL (8.9-20.6); Bilirubin, Total 0.6 mg/dL (0.2-1.2); Calc. Creatinine Clearance 0 mL/min (70-130); Calcium 9.5 mg/dL (7.8-10.44); Carbon Dioxide 29 mmol/L (22-29); Chloride 98 mmol/L (98-107); Estimated GFR-MDRD 62; Globulin 3.4 g/dL (2.4-3.5); Glucose 302 mg/dL (70-105); Lipase 147 U/L (8-78); Potassium 3.8 mmol/L (3.5-5.1); Protein, Total 7.2 g/dL (6.0-8.3); Sodium 138 mmol/L (136-145)
--- NOTE | 2018-10-18 10:04 | RAD ---
PA AND LATERAL CHEST RADIOGRAPH: Date: 10-18-18 History: Cough with nausea and vomiting for one week. Comparison: 10-09-18 FINDINGS: Dual-lead left subclavian cardiac pacemaking device remains in place. Cardiac silhouette and pulmonar y vasculature are within normal limits. There is a area of linear and patchy density again present at the left lung base similar to the prior exam with associated blunting of the left lateral costophren ic angle. Right lung is clear. Osseous structures are intact. There has been no interval change from prior exam. IMPRESSION: Stable pleural and parenchymal changes at the left lung base. These findings were also seen on prior CTA examinations dating back to 08-27-18. Findings suggestive of small area of loculated pleural flui d with parenchymal changes which could potentially be related to rounded area of atelectasis. However , continued follow up is recommended. No other interval change from prior exams. POS: [facility]
[2018-10-18] MEDS ORDERED: methylPREDNISolone Sod Succ/PF 125 MG/2 ML VIAL ONE (11:17)
[2018-10-18 11:49] LABS: Bilirubin Negative (Negative); Blood, Urine Negative (Negative); Clarity CLEAR (Clear); Glucose, Urine (Dipstick) 250 mg/dL (Negative); Leukocyte Negative (Negative); Nitrite Negative (Negative); Protein, Urine (Dipstick) 100 mg/dL (Neg-Trace); Specific Gravity, Urine 1.017 (1.002-1.036)
[2018-10-18 11:51] LABS: Bacteria/HPF None Seen HPF (None Seen); Hyaline Casts/LPF 0-3 HYALINE CAST LPF (0-3 Hyaline); Pathc Cast-AUWi Flag 0.29 (0-2.49); RBC/HPF 0-3 HPF (0-3); Squamous Epithelial 0-3 HPF (0-3); WBC/HPF 0-3 HPF (0-3)
== END 2018-10-18 12:19 | disposition home or self-care (01) ==
LOC: ERS 08:32
DX: J42 Unspecified chronic bronchitis (principal); R11.2 Nausea with vomiting, unspecified; E11.9 Type 2 diabetes mellitus without complications; I25.2 Old myocardial infarction; I50.9 Heart failure, unspecified; E66.9 Obesity, unspecified; Z86.718 Personal history of other venous thrombosis and embolism; Z79.891 Long term (current) use of opiate analgesic; Z79.899 Other long term (current) drug therapy; Z79.4 Long term (current) use of insulin
CPT/HCPCS: 36415; 71046; 80053; 81003; 81015; 83690; 85025; 93005; 94640; 96374; J2930; J7620

== ENCOUNTER 2018-11-15 08:46 | Observation (INO) | payer SELFPAY ==
[2018-11-15 09:34] LABS: #Eosinphils 0.2 thou/uL (0.0-0.7); #Lymphocytes 1.5 thou/uL (1.20-3.40); #Monocytes 0.7 thou/uL (0.11-0.59); %Basophils 0.4 % (0.0-1.0); %Eosinophils 1.7 % (0.0-10.0); %Lymphocytes 15.9 % (21.0-51.0); %Monocytes 7.8 % (0.0-10.0); %Neutrophils 74.2 % (42.0-75.0); Hemoglobin 14.2 g/dL (14.0-18.0); Mean Corpuscular HGB CONC 33.1 g/dL (32.0-36.0); Mean Corpuscular Hemoglobin 31.5 pg (27.0-31.0); Mean Corpuscular Volume 95.4 fL (78.0-98.0); Mean Platelet Volume 7.6 fL (7.4-10.4); Platelet Count 216 thou/uL (130-400); RBC Distribution Width 13.4 % (11.5-14.5); White Blood Cell (WBC) Count 9.5 thou/uL (4.8-10.8)
--- NOTE | 2018-11-15 09:47 | RAD ---
CHEST 1 VIEW: Date: 11/15/18 HISTORY: Syncope. COMPARISON: Chest radiograph dated 10/18/18. FINDINGS: Lungs are clear. There is chronic scarring left lung base, as well as thickening of the left costophr enic sulcus. No effusion or pneumothorax. Cardiac device is similar. IMPRESSION: No acute intrathoracic abnormality. POS: [facility]
[2018-11-15 09:57] LABS: ALT (SGPT) 33 U/L (8-55); AST (SGOT) 30 U/L (5-34); Alkaline Phosphatase 82 U/L (40-150); Anion Gap 14 mmol/L (10-20); BUN (Urea Nitrogen) 19 mg/dL (8.9-20.6); Bilirubin, Total 0.7 mg/dL (0.2-1.2); Calc. Creatinine Clearance 0 mL/min (70-130); Calcium 9.7 mg/dL (7.8-10.44); Carbon Dioxide 29 mmol/L (22-29); Chloride 101 mmol/L (98-107); Estimated GFR-MDRD 68; Globulin 3.4 g/dL (2.4-3.5); Glucose 195 mg/dL (70-105); Potassium 3.7 mmol/L (3.5-5.1); Protein, Total 7.4 g/dL (6.0-8.3); Sodium 140 mmol/L (136-145)
[2018-11-15 10:19] LABS: CKMB 3.7 ng/mL (0-6.6)
[2018-11-15 10:20] LABS: INR-International Normal Ratio 1.1; Prothrombin Time 13.8 SEC (12.0-14.7)
--- NOTE | 2018-11-15 10:45 | CT ---
CT BRAIN WITHOUT CONTRAST: Date: 11/15/18 HISTORY: Syncope. COMPARISON: CT brain dated 10/13/18. FINDINGS: No acute hemorrhage or infarct. No midline shift or mass effect. Ventricular size and extra-axial CSF spaces are normal. Paranasal sinuses and mastoids are clear. IMPRESSION: No acute intracranial abnormality. POS: [facility]
--- NOTE | 2018-11-15 11:00 | CT ---
CT PULMONARY ANGIOGRAM WITH IV CONTRAST AND 3D MIP RECONSTRUCTIONS: Date: 11-15-18 Provided Clinical History: Syncope. FINDINGS: Comparison with 08-27-18. 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 There is stable rounded atelect asis at the left lung base. There is no evidence for an acute central or segmental pulmonary embolus. The heart, pericardium, and great vessels appear otherwise unremarkable. The lungs are otherwise jose e of significant opacity. There is no pleural fluid or pneumothorax apparent. The airway appears patent and of normal caliber. Visualized portions of the upper abdomen appear unremarkable. There is no evidence for thoracic lymph node enlargement. The osseous structures demonstrate no concerning osteoblastic or osteolytic lesions. IMPRESSION: 1. 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 2. Stable parenchymal scarring/atelectatic changes at the left lung base. 3. No evidence for an acute process. POS: [facility]
[2018-11-15] MEDS ORDERED: Aspirin Chewable 81 MG TAB ONE (12:04)
[2018-11-15 12:40] VITALS: BMI 42.0
[2018-11-15] MEDS ORDERED: Senokot S 8.6-50 MG TAB PO PRN (12:55)
[2018-11-15] MEDS ORDERED: Ondansetron PF 4 MG/2 ML Vial IVP PRN (12:55)
[2018-11-15] MEDS ORDERED: HumaLOG 300 UNITS/3 ML VIAL SC PRN ×2 (12:55)
[2018-11-15] MEDS ORDERED: Dextrose 50% Abboject 50 ML SYRINGE SLOW IVP PRN (12:55)
[2018-11-15] MEDS ORDERED: Acetaminophen 325 MG TAB PO PRN (12:55)
[2018-11-15] MEDS ORDERED: Dextrose 5% in Water 1,000 ML IV PRN (12:55)
[2018-11-15] MEDS ORDERED: Guaifenesin DM 100-10/5 ML UDCUP PO PRN (12:55)
[2018-11-15] MEDS ORDERED: Benzonatate 100 MG CAP PO PRN (12:55)
[2018-11-15] MEDS ORDERED: Sodium Chloride 0.9% 1,000 ML IV SCH (13:00)
[2018-11-15] MEDS ORDERED: ISOVUE-370 76%-LOCM 1 ML ONE (13:09)
[2018-11-15] MEDS: Albuterol Sulfate 2.5 mg/3 ml Neb NEB SCH ×2 (13:44→20:26)
--- NOTE | 2018-11-15 15:31 | HP ---
REASON FOR ADMISSION: Syncope. HISTORY OF PRESENTING ILLNESS: The patient says that he was trying to get into his shower this morning, was about to pass out. He in fact, was holding a cell phone and was about to make a call another time in the house, but apparently passed out. He woke up with cell phone in his hand. This happened twice at home. He has also started to cough, which is essentially dry with headache, bodyaches and fever all starting from this morning. The patient says he has taken his flu shot for this season. No complaints of chest pain, palpitations, or PND. PAST MEDICAL AND SURGICAL HISTORY: History of diabetes mellitus type 2, nonischemic cardiomyopathy, diabetes mellitus type 2, history of COPD, although he has never smoked. States he has had secondhand smoke from multiple family and workplace, questionable asthma, right leg DVT, history of MT in the past, pacemaker placed in 2017, peripheral neuropathy, GERD, dyslipidemia. CURRENT MEDICATIONS: The patient takes, 1. Metformin 1000 mg p.o. twice daily. 2. Humulin 70/30 insulin 30 units subcu twice daily. 3. Gabapentin 300 mg p.o. three times daily. 4. Lasix 40 mg p.o. daily. 5. Atenolol 50 mg p.o. daily. 6. Lisinopril 10 mg daily. 7. Carvedilol 3.125 mg p.o. twice daily. 8. Potassium chloride 10 mEq p.o. daily. 9. Pepcid 20 mg twice daily. 10. Lipitor 40 mg p.o. daily. 11. Symbicort 160/4.5 mcg two puffs twice daily. 12. Albuterol inhaler q.6 hourly p.r.n. ALLERGIES: NO KNOWN DRUG ALLERGIES. PERSONAL HISTORY: Does not abuse alcohol or drugs. No history of smoking. FAMILY HISTORY: Mother is healthy and is 72 years old. Father is 74 years old and has coronary artery disease. 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 CODE STATUS: Full. POWER OF CHIEF ACCOUNTING OFFICER: Mom. REVIEW OF SYSTEMS: CONSTITUTIONAL: Negative for weight loss or gain, ability to conduct usual activities. SKIN: Negative for rash, itching. EYES: Negative for double vision, pain. ENT/MOUTH: Negative for nose bleeding, neck stiffness, pain, tenderness. CARDIOVASCULAR: Negative for palpitations, dyspnea on exertion, orthopnea. RESPIRATORY: Negative for shortness of breath, wheezing, cough, hemoptysis, fever or night sweats. GASTROINTESTINAL: Negative for poor appetite, abdominal pain, heartburn, nausea , vomiting, constipation, or diarrhea. GENITOURINARY: Negative for urgency, frequency, dysuria, nocturia. MUSCULOSKELETAL: Negative for pain, swelling. NEUROLOGIC/PSYCHIATRIC: Negative for anxiety, depression. ALLERGY/IMMUNOLOGIC: Negative for skin rash, bleeding tendency. PHYSICAL EXAMINATION: GENERAL: The patient is a 38-year-old male, who is currently not in any acute distress. VITAL SIGNS: Blood pressure 120/76, pulse is 94 per minute, respiratory rate 16 per minute, temperature 99.4 degrees Fahrenheit, and saturating 97% on room air. NECK: Supple. No elevated JVD. HEENT: Eyes; extraocular muscles intact. Pupils reacting to light. Oral cavity, mucous membranes are moist. There is mild congestion in the posterior pharynx. No exudate. CARDIOVASCULAR SYSTEM: S1, S2 heard. Regular rhythm. RESPIRATORY SYSTEM: Air entry 1+ bilateral. Scattered rhonchi plus. No wheezes. ABDOMEN: Soft. Bowel sounds heard. No tenderness, rigidity, or guarding. EXTREMITIES: No peripheral edema or calf tenderness. VASCULAR SYSTEM: Peripheral pulses 2+ bilateral. No ischemic ulcerations or gangrene. CENTRAL NERVOUS SYSTEM: No gross focal deficits noted. The patient is alert, awake, and oriented well. PSYCHIATRIC SYSTEM: The patient's mood is euthymic. No hallucinations or delusions. LABORATORY DATA: EKG done shows normal sinus rhythm at 86 beats per minute. There is RBBB seen. QRS duration is 134 milliseconds. A prior echo done in August of 2018 shows an EF of 50% to 55%. Influenza A and B antigens are negative. A CT angio chest done shows occlusion of left lower lobe pulmonary artery. There is stable parenchymal scarring/atelectasis of left lung base. No evidence of acute process. CT brain without contrast shows no acute intracranial abnormality. White count of 9, H and H of 14 and 42, platelet count 116, MCV is 95 with 74% neutrophils. PT, INR, electrolytes are all within normal limits. BUN 19, creatinine 1.4, serum glucose 195. Troponin I is indeterminate at 0.03. CK-MB 3.7. Albumin is 4. BNP 28. Influenza A and B antigens are negative. CLINICAL IMPRESSION AND PLAN: The patient will be under observation on telemetry for recurrent syncope. We will obtain orthostatic blood pressures. He will also be gently hydrated with normal saline at 60 mL/h. The patient likely has some viral syndrome, which has just started early this morning with cough, headache and fever. His influenza A and B antigens are negative. The patient states he has taken his flu shot for this year. We will continue his atenolol, Coreg, dual beta divya per his Cardiology advise along with Humulin 70/30, lisinopril, metformin, gabapentin as before. He will also be on DuoNeb q.6 hourly. He will be on our walking program, and the patient likely can be discharged once he is able to ambulate without any dizziness or losing consciousness. The patient has prior history of nonischemic cardiomyopathy with pacemaker as well. We will obtain pacemaker printout. Job ID: [id number] MTD[facility]
[2018-11-15] MEDS: Carvedilol 3.125 MG TAB PO SCH (16:53)
[2018-11-15] MEDS: metFORMIN 500 MG TAB PO SCH (16:53)
[2018-11-15] MEDS: Gabapentin 300 MG CAP PO SCH ×2 (16:54→22:54)
[2018-11-15] MEDS: HumuLIN 70/30 (300 UNITS/3 ML VIAL) SC SCH ×2 (22:53→22:59)
[2018-11-16] MEDS: Albuterol Sulfate 2.5 mg/3 ml Neb NEB SCH ×3 (01:49→12:55)
[2018-11-16 05:38] LABS: #Basophils 0.1 thou/uL (0.0-0.2); #Eosinphils 0.3 thou/uL (0.0-0.7); #Lymphocytes 1.8 thou/uL (1.20-3.40); #Monocytes 0.8 thou/uL (0.11-0.59); #Neutrophils 5.4 thou/uL (1.40-6.50); %Basophils 0.6 % (0.0-1.0); %Eosinophils 3.2 % (0.0-10.0); %Lymphocytes 22.1 % (21.0-51.0); %Monocytes 9.7 % (0.0-10.0); %Neutrophils 64.4 % (42.0-75.0); Hemoglobin 13.8 g/dL (14.0-18.0); Mean Corpuscular HGB CONC 31.8 g/dL (32.0-36.0); Mean Corpuscular Volume 97.4 fL (78.0-98.0); Mean Platelet Volume 7.6 fL (7.4-10.4); Platelet Count 201 thou/uL (130-400); RBC Distribution Width 13.3 % (11.5-14.5); Red Blood Cell (RBC) Count 4.43 mill/uL (4.70-6.10); White Blood Cell (WBC) Count 8.3 thou/uL (4.8-10.8)
[2018-11-16 06:22] LABS: Anion Gap 10 mmol/L (10-20); BUN (Urea Nitrogen) 14 mg/dL (8.9-20.6); Calc. Creatinine Clearance 166 mL/min (70-130); Carbon Dioxide 25 mmol/L (22-29); Chloride 101 mmol/L (98-107); Estimated GFR-MDRD 82; Glucose 116 mg/dL (70-105); Sodium 132 mmol/L (136-145)
[2018-11-16] MEDS: metFORMIN 500 MG TAB PO SCH (08:10)
[2018-11-16] MEDS: Carvedilol 3.125 MG TAB PO SCH (08:11)
[2018-11-16] MEDS: HumuLIN 70/30 (300 UNITS/3 ML VIAL) SC SCH (08:11)
[2018-11-16] MEDS: Gabapentin 300 MG CAP PO SCH (08:11)
[2018-11-16] MEDS ORDERED: Atenolol 50 MG TAB PO SCH (09:00)
[2018-11-16] MEDS ORDERED: Enoxaparin Sodium 40 MG/0.4 ML SYRINGE SC SCH (09:00)
[2018-11-16] MEDS ORDERED: Lisinopril 20 MG TAB PO SCH (09:00)
[2018-11-16 11:46] VITALS: BP 124/87; TEMP 99.7
--- NOTE | 2018-11-16 12:28 | PDOC.PN ---
- Subjective Encounter Start Date: 11/16/18 Encounter Start Time: 08:00 Subjective: feels better, is amb in hallway -: nasal congestion, headache and airway is clearing up -: no dizziness or passing out - Objective Resuscitation Status - Order Detail: 11/15/18 12:51 Resuscitation Status Routine Resuscitation Status: FULL: Full Resuscitation Vital Signs & Weight: Vital Signs (12 hours) Temp Pulse Resp BP BP BP BP 11/16/18 11:30 99.7 F H 85 16 124/87 11/16/18 07:41 98.6 F 75 20 159/93 H 148/77 H 171/86 H 11/16/18 06:30 74 16 11/16/18 01:49 70 16 Pulse Ox 11/16/18 11:30 92 L 11/16/18 07:41 94 L 11/16/18 06:30 94 L 11/16/18 01:49 94 L Weight Weight 310 lb I&O: 11/15/18 11/16/18 11/17/18 06:59 06:59 06:59 Intake Total 916 Output Total 600 Balance 316 Result Diagrams: 11/16/18 04:35 11/16/18 04:35 Additional Labs: Accuchecks 11/16/18 11/15/18 11/15/18 10:36 20:35 16:44 POC Glucose 194 H 174 H 193 H Phys Exam - Physical Examination HEENT: PERRLA, moist MMs Neck: no JVD, supple Respiratory: no wheezing, no rales Cardiovascular: RRR, no significant murmur Gastrointestinal: soft, non-tender, positive bowel sounds Musculoskeletal: no edema, pulses present Neurological: non-focal, moves all 4 limbs Psychiatric: normal affect, A&O x 3 Dx/Plan (1) Syncope Code(s): R55 - SYNCOPE AND COLLAPSE Status: Acute Qualifiers: Syncope type: unspecified Qualified Code(s): R55 - Syncope and collapse (2) Acute viral syndrome Code(s): B34.9 - VIRAL INFECTION, UNSPECIFIED Status: Acute (3) Obesity Code(s): E66.9 - OBESITY, UNSPECIFIED Status: Chronic Qualifiers: Obesity classification: adult class 3 (BMI >= 40) Body mass index: BMI 40.0 -44.9 (4) CAD (coronary artery disease) Code(s): I25.10 - ATHSCL HEART DISEASE OF [place] CORONARY ARTERY W/O ANG PCTRS Status: Chronic Qualifiers: Coronary Disease-Associated Artery/Lesion type: [place] artery Habematolel vs. transplanted heart: [place] heart Associated angina: without angina Qualified Code(s): I25.10 - Atherosclerotic heart disease of [place] coronary artery without angina pectoris (5) DM type 2 (diabetes mellitus, type 2) Status: Chronic Qualifiers: Diabetes mellitus skilled nursing insulin use: with clinical support specialist use Diabetes mellitus complication status: with unspecified complications Qualified Code(s) : E11.8 - Type 2 diabetes mellitus with unspecified complications; Z79.4 - alf (current) use of insulin (6) Diastolic CHF Code(s): I50.30 - UNSPECIFIED DIASTOLIC (CONGESTIVE) HEART FAILURE Status: Chronic Qualifiers: Heart failure chronicity: chronic Qualified Code(s): I50.32 - Chronic diastolic (congestive) heart failure - Plan hemostable -: discussed verbally with , no sign of PE -: outpt appt with in 4 weeks -: dc pt home -: alb inhaler prn * .
--- NOTE | 2018-11-17 11:17 | DIS ---
DATE OF ADMISSION: 11/15/2018 DATE OF DISCHARGE: 11/16/2018 DISCHARGE DISPOSITION: To home. PRIMARY DISCHARGE DIAGNOSES: 1. Viral syndrome, resolving. 2. Syncope x2 episodes, resolved. SECONDARY DISCHARGE DIAGNOSES: 1. History of diastolic heart failure. 2. Diabetes mellitus type 2. 3. Coronary artery disease. 4. Obesity. PROCEDURES DONE DURING HOSPITALIZATION: The patient had CT brain done, which showed no acute intracranial abnormality. 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 No evidence of acute process was seen. Influenza A and B antigens were negative. H and H were 13 and 42, platelet count 201, white count of 8, MCV 97, BUN 14, creatinine 1.1. Troponin I was indeterminate, peaking up to 0.03. BNP 28. DISCHARGE MEDICATIONS: 1. Atenolol 50 mg p.o. daily. 2. Carvedilol 3.125 mg p.o. twice daily. 3. Lasix 40 mg p.o. daily. 4. Potassium chloride 10 mEq p.o. daily. 5. Tessalon 100 mg p.o. three times daily. 6. Albuterol inhaler two puffs q.6 hourly p.r.n. 7. Metformin 1000 mg twice daily. 8. Lisinopril 20 mg p.o. daily. 9. NPH insulin 30 units subcu twice daily. 10. Gabapentin 300 mg p.o. three times daily. ALLERGIES: NO KNOWN DRUG ALLERGIES. DISCHARGE PLAN: The patient to follow up with primary care physician in one week and he also needs to follow up with Dr. Gaming for CT findings in 4 to 6 weeks. BRIEF COURSE DURING HOSPITALIZATION: The patient initially was brought to emergency room after he passed out two times on the morning of arrival here. In view of this history, he was placed under observation. He has had complete workup done and telemetry has not revealed any abnormalities. His CT angio revealed findings of left lower lobe pulmonary artery being absent versus occluded. In view of this , I have discussed these findings with Dr. Gaming verbally. 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 He is advised to follow up with Dr. Gaming in 4 to 6 weeks in his office and number has been provided for the patient. He is ambulating in the hallway. He is not dizzy anymore. The patient also had viral syndrome with congestion, mild headache, and postnasal drip on arrival. He has been given prescriptions for albuterol inhaler, Tessalon Perles, and Mucinex. Please see a [id number] documentation for the day of discharge on [facility]. The patient is to follow up with his primary care physician in 1 week. Job ID: [id number] MTDD
== END 2018-11-16 13:45 | disposition home or self-care (01) ==
LOC: ERS 08:46 → 2SW 11:38
PROVIDERS: ADMIT Internal Medicine; ATTEND Internal Medicine
DX: R55 Syncope and collapse (principal); B34.9 Viral infection, unspecified; I25.10 Atherosclerotic heart disease of native coronary artery without angina pectoris; I26.99 Other pulmonary embolism without acute cor pulmonale; I50.32 Chronic diastolic (congestive) heart failure; I42.8 Other cardiomyopathies; J44.9 Chronic obstructive pulmonary disease, unspecified; I25.2 Old myocardial infarction; E11.42 Type 2 diabetes mellitus with diabetic polyneuropathy; K21.9 Gastro-esophageal reflux disease without esophagitis; E78.5 Hyperlipidemia, unspecified; E66.9 Obesity, unspecified; Z68.41 Body mass index [BMI] 40.0-44.9, adult; Z79.4 Long term (current) use of insulin; Z79.899 Other long term (current) drug therapy; Z77.22 Contact with and (suspected) exposure to environmental tobacco smoke (acute) (chronic); Z86.718 Personal history of other venous thrombosis and embolism; Z95.1 Presence of aortocoronary bypass graft
CPT/HCPCS: 36415; 36416; 70450; 71045; 71275; 80048; 80053; 82553; 83880; 84484; 85025; 85379; 85610; 87804; 93005; 96372; G0378; J1650; J1815; J7611; Q9966